=== PATIENT | female | born 1935 | race Caucasian/White ===

== ENCOUNTER 2018-04-02 09:47 | Outpatient (CLI) | payer MEDICARE, BC ==
[~2018-04-02] VITALS: Ht 167.6 cm; Wt 99.1 kg
--- NOTE | ~2018-04-02 | HEMODYNAMI ---
PATIENT:PHILL OH MEDICAL RECORD: [id number] : 35 LOCATION:[facility] ADMISSION DATE: 04/02/18 Generatedon:04/02/201816:14 Patient name: PHILL OH Patient #: [id number] SSN: D OB: 1935 Date of study: 04/02/2018 Page: Of Hemodynamic Procedure Report Patient Data Patient Demographics Procedure consent was obtained First Name: PHILL Gender: Female Last Name: ADRIANO : 1935 Middle Initial: B Age: 82 year(s) Patient #: [id number] Race: Unknown Additional ID: [id number] Contact details [address]: [address] [place] [address] State: [place] City: [place] Zip code: [address] Past Medical History Allergies: No known allergies Admission Admission Data Admission Date: 04/02/2018 Admission Time: 9:47 Procedure Procedure Types Cath Procedure Diagnostic Procedure LHC LH w/Coronaries Sedation Charges Moderate Sedation up to 15 minutes PCI Procedure Coronary Stent Coronary Stent Initial Procedure Description Procedure Date Procedure Date: 04/02/2018 Procedure Start Time: 15:58 Procedure End Time: 16:08 Procedure Staff Name Function Gurwinder Silva MD Performing Physician Rylie Daily RT Monitor Maria Luisaandie Purcell RT Scrub Silvana Antony RN Nurse Procedure Data Cath Procedure Fluoroscopy Diagnostic fluoroscopy Total fluoroscopy Time: 3.1 time: 3.1 min min Diagnostic fluoroscopy Total fluoroscopy dose: 596 dose: 596 mGy mGy Contrast Material Contrast Material Type Amount (ml) Isovue 300 62 Entry Location Entry Primary Successful Side Size Upsize Upsize Entry Closure Viramontes ccessful Closure Location (Fr) 1 (Fr) 2 (Fr) Remarks Device Remarks Radial Right 6 Fr Mechanical artery Short Compression Estimated blood loss: 5 ml Diagnostic catheters Device Type Used For End Catheter Placement DIAGNOSTIC [place] 110cm 5 Multi-vessel Fr catheter ([id number]) Angiography Procedure Complications No complications Procedure Medications Medication Administration Route Dosage Oxygen NC 2 l/min Lidocaine 2% added to field 20 Heparin Flush Bag added to field 2 bags (1000units/500ml NS) 0.9% NaCl I.V. 100 ml/hr Versed I.V. 1 mg Fentanyl I.V. 50 mcg Versed I.V. 1 mg Fentanyl I.V. 50 mcg Radial Cocktail I.A. 1 syringe (Verapomil 2mg/Nitro 400mcg/Heparin 1500units) Heparin Bolus I.V. 4000 units Integrilin (Bolus I.V. 9 ml 2mg/ml) Plavix P.O. 600 mg Hemodynamics Rest Heart Rate: 72 (bpm) Snapshots Pre Cath Intra NCS Post Cath Vital Signs Time Heart Resp SPO2 NIBP (mmHg) Rhythm Pain Sedation Rate (ipm) (%) Status Level (bpm) 15:36:04 71 21 95 Out of NSR 0 (11) 10(A) range , No pain 15:38:34 72 19 95 181/89(149) NSR 0 (11) 10(A) , No pain 15:42:56 75 13 95 137/77(114) NSR 0 (11) 10(A) , No pain 15:47:04 73 12 96 158/75(121) NSR 0 (11) 10(A) , No pain 15:51:20 72 13 98 145/74(117) NSR 0 (11) 10(A) , No pain 15:55:32 71 15 97 150/66(104) NSR 0 (11) 9(A) , No pain 15:59:46 80 17 96 100/66(95) NSR 0 (11) 9(A) , No pain 16:04:33 80 17 95 138/75(100) NSR 0 (11) 9(A) , No pain 16:09:38 82 16 96 169/86(131) NSR 0 (11) 10(A) , No pain Medications Time Medication Route Dose Verified Delivered Reason Note s Effectiveness by by 15:36:33 Oxygen NC 2 l/min Gurwinder Buffie used for Shira Antony plastic mould maker 15:36:40 Lidocaine 2% added 20ml Gurwinder Buffie for local to vial Shira Antony RN anesthetic field 15:36:46 Heparin Flush added 2 bags Gurwinder Buffie used for Bag to Shira Antony plastic mould maker (1000units/500ml field NS) 15:36:54 0.9% NaCl I.V. 100 Gurwinder Pina Per physician ml/hr Shira Antony RN 15:42:25 Versed I.V. 1 mg Gurwinder Pina for sedation Shira Antony RN 15:42:31 Fentanyl I.V. 50 mcg Gurwinder Pina for sedation Shira Antony RN 15:54:13 Versed I.V. 1 mg Gurwinder Pina for sedation Shira Antony RN 15:54:16 Fentanyl I.V. 50 mcg Gurwinder Pina for sedation Shira Antony RN 15:59:07 Radial Cocktail I.A. 1 Gurwinder Purdy for (Verapomil syringe Shira Silva MD vasodilation 2mg/Nitro 400mcg/Heparin 1500units) 16:02:13 Heparin Bolus I.V. 4000 Gurwinder Pina for veri fied units Shira Antony RN anticoagulation with dr silva 16:03:48 Integrilin I.V. 9 ml Gurwinder forbes Wast ed 1 (Bolus 2mg/ml) Shira Antony RN antiplatelet ml of therapy vial 16:10:16 Plavix P.O. 600 mg Gurwinder Pina for Shira Antony RN antiplatelet therapy Procedure Log Time Note 15:15:09 Silvana Antony RN sent for patient. Start room use. 15:17:26 Signed procedure consent form obtained from patient. 15:17:28 Time tracking: Regular hours (M-F 7:00 - 5:00) 15:17:31 Plan of Care:Hemodynamics will remain stable., Cardiac rhythm will remain stable., Comfort level will be maintained., Respiratory function will remain adequate., Patient/ family verbilizes understanding of procedure., Procedure tolerated without complication., Recovers from procedure without complications.. 15:17:40 H&P Date Dictated: 03/11/2018 Within 30 days and on chart., H&P Addendum completed by physician on day of procedure. (MUST COMPLETE FOR ALL OUTPATIENTS). 15:17:51 Patient allergic to No known allergies 15:26:45 Patient received from Pre/Post Procedure Room to CCL 2 Alert and oriented. Tansferred to table in Supine position. 15:26:47 Warm blankets applied, and onelia hugger turned on for patient comfort. 15:26:47 Correct patient and procedure confirmed by team. 15:26:48 ECG and BP/O2 sat monitors applied to patient. 15:34:59 Vital chart was started 15:36:33 Oxygen 2 l/min NC was administered by Silvana Antony RN; used for procedure; 15:36:40 Lidocaine 2% 20ml vial added to field was administered by Silvana Antony RN; for local anesthetic; 15:36:46 Heparin Flush Bag (1000units/500ml NS) 2 bags added to field was administered by Silvana Antony RN; used for procedure; 15:36:54 0.9% NaCl 100 ml/hr I.V. was administered by Silvana Antony RN; Per physician; 15:37:31 Baseline sample Acquired. 15:38:20 Rhythm: sinus rhythm 15:38:22 Full Disclosure recording started 15:38:24 Pre-procedure instructions explained to patient. 15:38:24 Pre-op teaching completed and patient verbalized understanding. 15:38:25 Family in waiting room. 15:38:27 Patient NPO since Midnight. 15:38:28 Is the patient allergic to Iodine/contrast media? No. 15:38:29 Was the patient premedicated? No 15:39:02 Is patient on blood thinner?No 15:39:05 Patient diabetic? Yes. 15:39:06 If diabetic: On Metformin? Yes 15:39:14 If on Metformin: Last Dose? 03/31/2018 15:39:18 Previous problem with sedation/anesthesia? No ? 15:39:37 Snore? Yes 15:39:38 Sleep apnea? No 15:39:39 Deviated septum? No 15:39:43 Opens mouth fully? Yes 15:39:44 Sticks out tongue? Yes 15:39:47 Airway obstruction? No ? 15:39:52 Dentures? Yes in tight 15:39:59 Pre procedure: right dorsailis pedis pulse 2+ Normal; easily identifiable; not easily obliterated 15:40:02 Pre procedure: left dorsailis pedis pulse 2+ Normal; easily identifiable; not easily obliterated 15:40:08 Patient pain scale 0/10 ?. 15:40:13 IV patent on arrival in left forearm with 0.9% NaCl at [facility]. 15:40:15 Lab results completed and on chart. 15:40:19 Right Radial & Right Groin area was prepped with chlora-prep and draped in sterile fashion 15:40:20 Alarms reviewed by R. N. 15:40:20 Sharps counted by scrub and verified by R.N. 15:40:22 Physician arrived 15:40:23 --------ALL STOP TIME OUT------ 15:40:23 Final Timeout: patient, procedure, and site verified with staff and physician. All members of the team are in agreement. 15:40:26 Right Radial & Right Groin site verified by team. 15:40:29 Physical assessment completed. ASA score P 2 - A patient with mild systemic disease as per Gurwinder Silva MD. 15:40:32 Sedation plan: IV Moderate Sedation Medication:Versed, Fentanyl 15:41:49 Use device set Radial Dx or PCI 15:41:50 ACIST Syringe (21923) opened to sterile field. 15:41:50 Medline Cath Pack ([id number]) opened to sterile field. 15:41:51 Bag Decanter (2002S) opened to sterile field. 15:41:51 DIAGNOSTIC WIRE .035 260cm J wire (316509) opened to sterile field. 15:41:51 ACIST Hand Control (48308) opened to sterile field. 15:41:52 ACIST Manifold (31675) opened to sterile field. 15:41:52 Tegaderm 4 x 4 (1626W) opened to sterile field. 15:41:53 MBrace Wrist Support ([id number]) opened to sterile field. 15:41:54 SHEATH 6Fr Prelude Radial ([id number]) opened to sterile field. 15:42:25 Versed 1 mg I.V. was administered by Silvana Antony RN; for sedation; 15:42:31 Fentanyl 50 mcg I.V. was administered by Silvana Antony RN; for sedation; 15:47:05 Zero performed for pressure channel P1 15:54:13 Versed 1 mg I.V. was administered by Silvana Antony RN; for sedation; 15:54:16 Fentanyl 50 mcg I.V. was administered by Silvana Antony RN; for sedation; 15:56:12 Procedure started. 15:58:30 Local anesthetic to right radial artery with Lidocaine 2% by Gurwinder Silva MD.INITIAL ACCESS ONLY 15:58:38 A 6 Fr Short sheath was inserted into the Right Radial artery 15:58:55 A DIAGNOSTIC [place] 110cm 5 Fr catheter (395508) was advanced over the wire and used for Multi-vessel Angiography. 15:59:07 Radial Cocktail (Verapomil 2mg/Nitro 400mcg/Heparin 1500units) 1 syringe I.A. was administered by Gurwinder Silva MD; for vasodilation; 15:59:26 LV hemodynamics recorded. 15:59:28 LV gram done using VALLES 15:59:31 Injector settings: Ml/sec: 5, Volume: 15, 15:59:37 EF : 60 % 16:00:20 LCA angiography performed. 16:00:23 Injector settings: Ml/sec: 3, Volume: 6, 16:00:35 RCA angiography performed. 16:00:38 Injector settings: Ml/sec: 3, Volume: 6, 16:00:41 Catheter removed. 16:00:42 Proceeding to intervention. 16:00:59 CHOICE PT Extra Support 182cm wire ([id number]) opened to sterile field. 16:01:00 INFLATOR Merit BasixCompak (ZW4074) opened to sterile field. 16:01:01 GUIDE 6FR XBLAD 3.5 catheter ([id number]) opened to sterile field. 16:01:54 6 Fr xblad 3.5 guide catheter was inserted over the wire 16:02:13 Heparin Bolus 4000 units I.V. was administered by Silvana Antony RN; for anticoagulation; verified with dr silva 16:02:41 choice pt wire advanced. 16:02:47 Wire advanced across lesion. 16:03:48 Integrilin (Bolus 2mg/ml) 9 ml I.V. was administered by Silvana Antony RN; for antiplatelet therapy; Wasted 1 ml of vial 16:04:03 Place stent Inflation Number: 1 A RICH RX 2.5 x 38 stent ([id number]) was prepped and advanced across the Mid LAD. The stent was deployed at 17 JESSICA for 0:10 (min:sec). 16:04:36 Stent catheter was removed intact over wire. 16:05:41 Place stent Inflation Number: 1 A RICH RX 3.0 x 15 stent ([id number]) was prepped and advanced across the Prox LAD. The stent was deployed at 15 JESSICA for 0:10 (min:sec). 16:06:44 Stent catheter was removed intact over wire. 16:06:44 Wire removed. 16:06:44 Guide catheter removed. 16:07:01 TR BAND Standard ([id number]) opened to sterile field. 16:07:12 Sheath removed intact; hemostasis achieved with Mechanical Compression to the Right Radial artery. 16:07:14 Procedure ended.(Physican Out) 16:07:18 Fluoroscopy time 03.10 minutes. 16:07:22 Fluoroscopy dose: 596 mGy 16:07:22 Flurop Dose total: 596 16:07:27 Contrast amount:Isovue 300 62ml. 16:07:29 Sharps counted by scrub and verified by R.N. 16:07:48 TR band inflated with 11cc of air. 16:07:50 Insertion/operative site no bleeding no hematoma. 16:07:55 Post right radial artery:stable 16:07:58 Post procedure rhythm: unchanged. 16:08:01 Estimated blood loss: 5 ml 16:08:03 Post procedure instruction explained to patient.Patient verbalizes understanding. 16:08:04 Patient needs reinforcement of post procedure teaching. 16:08:32 Procedure type changed to Cath procedure, Diagnostic procedure, LHC, LHC w/Coronaries, Sedation Charges, Moderate Sedation up to 15 minutes, PCI procedure, Coronary Stent, Coronary Stent Initial 16:08:33 Procedure and supply charges have been captured, reviewed, submitted and are correct. 16:08:37 Procedure Complication : No complications 16:08:39 Vital chart was stopped 16:08:39 See physician's report for complete and final results. 16:08:43 Report given to Pre/Post Procedure Room. 16:08:45 Patient transfered to Pre/Post Procedure Room with Stretcher. 16:08:48 Procedure ended. 16:08:48 Full Disclosure recording stopped 16:08:53 ACC-PCI Only Patient was given prescriptions, or instructed by Gurwinder Silva MD to start/continue the following medications upon discharge: Plavix 16:08:54 End room use (Document Last) 16:10:16 Plavix 600 mg P.O. was administered by Silvana Antony RN; for antiplatelet therapy; Intervention Summary Intervention Notes Time ActionType Lesion and Equipment Used Action# Pressure Duration Attributes 16:04:03 Place stent Mid LAD RICH RX 2.5 x 1 17 00:10 38 stent ([id number]) 16:05:41 Place stent Prox LAD RICH RX 3.0 x 1 15 00:10 15 stent ([id number]) Device Usage Item Name Manufacture Quantity Catalog Number Hospital Part Current Minimal Lot# / Charge Number Stock Stock Serial# Code ACIST Syringe Acist 1 86301 891779 488111 452137 20 (63123) Medical Systems Inc Medline Cath Cardinal 1 [id number] 429355 16989 030784 5 Pack Health ([id number]) Bag Decanter Microtek 1 2001S 526025 74572 379560 5 (2001S) Medical Inc. DIAGNOSTIC WIRE [place] 1 716662 257845 242650 078004 30 .035 260cm J wire (754559) ACIST Hand Acist 1 25102 314940 301105 901153 5 Control (48664) Medical Systems Inc ACIST Manifold Acist 1 87428 285291 155976 201012 5 (33908) Medical Systems Inc Tegaderm 4 x 4 3M 1 1626W 659413 109434 985186 5 (1626W) MBrace Wrist Advanced 1 140-0250-00 431838 79115 075147 5 Support Vascular (094912752) Dynamics SHEATH 6Fr Merit 1 [id number] 809767 824226 228755 5 Prelude Radial Medical ([id number]) DIAGNOSTIC Terumo 1 79-1777 450559 457366 798224 5 [place] 110cm 5 Fr catheter (340079) CHOICE PT Extra [place] 1 [id number] 925398 551921 835163 5 Support 182cm Scientific wire (0834569L5) INFLATOR Merit Merit 1 DG3832 204984 912250 396663 15 BasixHealth Discovery Medical (SV6281) GUIDE 6FR XBLAD Cardinal 1 [id number] 849592 941809 760564 10 3.5 catheter Health (22736017) RICH RX 2.5 x Medtronic 1 [id number] 245664 3292776 101945 5 [id number] 38 stent ([id number]) RCIH RX 3.0 x Medtronic 1 [id number] 789757 6159829 307205 5 [id number] 15 stent ([id number]) TR BAND Terumo 1 [id number] 479373 063482 709909 40 Standard ([id number]) Signature Audit [place] Stage Time Signature Unsigned Intra-Procedure 04/02/2018 Rylie Daily 4:14:03 PM RT(R) Signatures Monitor : Rylie Daily RT Signature : Date : Time : [facility] [address] [place] [address]
--- NOTE | ~2018-04-02 | OP ---
PATIENT NAME: PHILL OH MEDICAL RECORD: [id number] :35 LOCATION:D.[facility] ADMISSION DATE: SURGEON: JILLIAN BYRNES MD DATE OF OPERATION: 04/02/2018 DATE OF SERVICE: 04/02/2018 PROCEDURES: 1. PTCA stent of LAD. 2. Left heart catheterization. 3. Selective coronary angiography. 4. Left ventriculogram. INDICATION: Angina and coronary artery disease. PROCEDURE IN DETAIL: After informed consent was obtained and after a detailed description of the risks, benefits as well as alternative therapies the patient elected to proceed with angiogram and angioplasty. The right radial area was prepped and draped in normal sterile fashion. Right radial artery was cannulated via modified Seldinger technique with placement of 6-Rwandan sheath. All catheters exchanged through this sheath. FINDINGS: The left ventriculogram was performed in standard 30-degree VALLES view, reveals good cardiac wall motion throughout all segments. Overall ejection fraction is estimated at 60%. SELECTIVE CORONARY ANGIOGRAPHY: 1. Left main is with no significant angiographic disease. 2. Left anterior descending has a long area of 70 to 80% stenosis in the proximal vessel. 3. Left circumflex has mild irregularities, but no flow-limiting stenosis. 4. Right coronary has mild irregularities, but no flow-limiting stenosis. PTCA STENT OF THE LAD: The stent used was 2.5 x 38 and 3.0 x 15, both the [place] stents. Result was 0% residual stenosis. OVERALL IMPRESSION: Successful percutaneous transluminal coronary angioplasty stent of the left anterior descending going from 70 to 80% initial stenosis to 0% residual. TRANSINT:[id number] Voice Confirmation ID: [id number] DOCUMENT ID: [id number] JILLIAN BYRNES MD at 1325 CC: [id number] DICTATION DATE: 04/02/18 1611 ACCOUNT CONTACT ASSOCIATE: 04/02/18 1632 DEP CLI 04/02/18 [place] [id number] [place] [id number]
[2018-04-02] MEDS ORDERED: TRAZODONE HCL50 MG PO (10:37)
[2018-04-02] MEDS ORDERED: SYNTHROID25 MCG PO (10:38)
[2018-04-02] MEDS ORDERED: VERELAN180 MG PO (10:39)
[2018-04-02] MEDS ORDERED: GLIPIZIDE10 MG PO (10:39)
[2018-04-02] MEDS ORDERED: GLUCOPHAGE500 MG PO (10:40)
[2018-04-02] MEDS ORDERED: MULTIPLE VITAMI1 TA1 PO (10:42)
[2018-04-02] MEDS ORDERED: PRAVACHOL20 MG PO (10:42)
[2018-04-02] MEDS ORDERED: GABAPENTIN100 MG PO ×2 (10:44)
[2018-04-02 10:56] VITALS: BP 179/64; Ht 167.6 cm; Wt 99.1 kg
[2018-04-02 11:51] LABS: CALC OSMOLALITY 283 mosm/kg (275-300); CALCIUM 9.1 mg/dL (8.5-10.1); CARBON DIOXIDE 30.2 mmol/L (21.0-32.0); CHLORIDE - SERUM 104 mmol/L (98-107); CREATININE - SERUM 0.6 mg/dL (0.6-1.3); GLUCOSE 181 mg/dL (74-106); POTASSIUM - SERUM 4.1 mmol/L (3.5-5.1); SODIUM 140 mmol/L (136-145); UREA NITROGEN 13 mg/dL (7-18); eGFR NON AFRICAN AMERICAN > 90 mL/min (90-120)
[2018-04-02 12:48] LABS: HEMATOCRIT 40.6 % (36.0-48.0); HEMOGLOBIN 13.5 g/dL (12-16); MCH 31.6 pg (26.0-34.0); MCHC 33.3 g/dL (31.0-37.0); MCV 95.1 fL (80.0-100.0); MEAN PLATELET VOLUME 8.6 fL (7.4-10.4); PLATELET COUNT 176 10x3/uL (130-400); RBC 4.27 10x6/uL (4.00-5.40); RDW 13.6 % (11.5-14.5); WBC 29.6 10x3/uL (4.8-10.8)
[2018-04-02 13:08] LABS: ANISOCYTOSIS OCC; EOSINOPHILS 1 % (0-7); LYMPHOCYTES 56 % (15-50); MONOCYTES 13 % (2-11); NEUTROPHILS 9 % (40-80); PLATELET ESTIMATE NORMAL
[2018-04-02] MEDS ORDERED: BAYER CHEWABLE81 MG PO (16:35)
[2018-04-02] MEDS ORDERED: PLAVIX75 MG PO (16:35)
== END 2018-04-02 20:00 | disposition home or self-care (01) ==
LOC: D.CATH 09:47
PROVIDERS: Internal Medicine Interventional Cardiology
DX: I25.119 Atherosclerotic heart disease of native coronary artery with unspecified angina pectoris (principal)
CPT/HCPCS: 93458; C9600

== ENCOUNTER → 2019-11-14 10:30 | Outpatient (CLI) | payer MEDICARE, BC ==
[2019-10-22 14:20] VITALS: BMI 30.4
--- NOTE | ~2019-11-14 | EC ---
PATIENT:PHILL OH DATE OF SERVICE: 11/14/19 SEX: F MEDICAL RECORD: [id number] DATE OF : 35 LOCATION:D[facility] AGE OF PATIENT: 84 ADMISSION DATE: 11/14/19 REFERRING PHYSICIAN: INTERPRETING PHYSICIAN: JILLIAN SILVA MD ECHOCARDIOGRAM REPORT ECHO CHARGES 4 ECHO COMPLETE Date: 11/14/19 CLINICAL DIAGNOSIS: HEAD/PAC'S H/O A-FIB/HTN/CAD ECHOCARDIOGRAPHIC MEASUREMENTS (adult normal given) AC root (d.<3.7cm) 2.9 cm LV Septum d (<1.2 cm> 1.7 cm Valve Excursion 1.8 cm LV Septum (systole) 2.1 cm Left Atria (s.<4.0cm> 4.7 cm LVPW d(<1.2cm) 1.4 cm RV (d.<2.3cm) 2.4 cm LVPW (sytole) 2.1 cm LV diastole(<5.6CM) 4.7 cm MV E-F(>70mm/sec) cm LV systole 2.6 cm LVOT Diameter 1.7 cm MV exc.(>10mm) cm Est.ejection fraction (50-75%) % DOPPLER: LVIT cm/sec A 111 cm/sec E 72.0 cm/sec LA cm/sec RVSP 18.0 mmHg LVOT 102 cm/sec AOP1/2T m/s Asc. Ao 139 cm/sec RVOT 86.0 cm/sec RA cm/sec PA 114 cm/sec AV Gradient Peak 7.7 mmHg AV Mean 3.7 mmHg AV Area 1.9 cm MV Gradient Peak 5.5 mmHg MV Mean 1.8 mmHg MV Area cm COMMENTS: OP - HC Installation Superintendent: 1 KRISTOPHER THOMAS Tile Molder: 1 Dr. Silva TAPE# PACS Pericardial Effusion N DATE OF SERVICE: FINDINGS: 1. Left ventricular chamber size is within normal limits. Left ventricular systolic function is normal at 55%. 2. Left atrium is enlarged at 4.7 cm. Right atrium and right ventricle chamber sizes are within normal limits. 3. Valvular structures have normal structure and motion. 4. Doppler interrogation reveals no significant valvular insufficiency or stenosis. Pulmonary systolic pressure estimated at 18 mmHg. ECHOCARDIOGRAM REPORT [id number] PHILL OH 5. No evidence of pericardial effusion or left ventricular thrombus. TRANSINT:[id number] Voice Confirmation ID: [id number] DOCUMENT ID: [id number] JILLIAN SILVA MD CC: [id number] DICTATION DATE: 11/14/19 1645 CAR EXAMINER: 11/15/19 0040 DEP CLI 11/14/19 [facility] [address] [place] [id number]
--- NOTE | ~2019-11-14 | ST ---
PATIENT:PHILL OH MEDICAL RECORD: [id number] SEX: F LOCATION:[facility] ORDER #: ADMISSION DATE: 11/14/19 AGE OF PATIENT: 84 REFERRING PHYSICIAN: INTERPRETING PHYSICIAN: JILLIAN BYNRES MD DATE OF SERVICE: 11/14/2019 PROCEDURE: Nuclear stress test. INDICATION: Angina and coronary artery disease, hypertension, shortness of breath. She was exercised on standard Lexiscan protocol with 33 mCi of sestamibi injected at peak stress, 11 mCi used previously for rest images. FINDINGS: Gated SPECT reveals preserved ejection fraction at 59% with good wall motioning and thickening and brightening throughout all segments. SPECT imaging: Cardiolite was used as myocardial perfusion agent. There is reversibility laterally as well as anteriorly at the basal, mid and apical anterior segments. The degree of reversibility is mild. The amount of myocardium involved is moderate. Laterally, it is apical mid and basal lateral segments. Degree of reversibility is moderate. The amount of myocardium involved is moderate. OVERALL IMPRESSION: Abnormal nuclear stress test, reversible ischemia anteriorly and laterally suggestive of hemodynamically significant coronary artery disease. TRANSINT:[id number] Voice Confirmation ID: [id number] DOCUMENT ID: [id number] JILLIAN BYRNES MD CC: CHELA KAUFMAN MD [id number] DICTATION DATE: 11/14/19 1559 STOCK TRANSFER CLERK: 11/15/19 0820 DEP CLI 11/14/19 [place] [id number] [place] [address]
[~2019-11-14 10:30] MED LIST: BAYER CHEWABLE81 MG PO; GABAPENTIN100 MG PO; GLIPIZIDE10 MG PO; GLUCOPHAGE500 MG PO; LEVOFLOXACIN500 MG PO; MULTIPLE VITAMI1 TA1 PO; PLAVIX75 MG PO; PRAVACHOL20 MG PO; SYNTHROID25 MCG PO; TRAZODONE HCL50 MG PO; VERELAN180 MG PO
== END | disposition home or self-care (01) ==
LOC: D.HCCARDIO 10:30
PROVIDERS: ATTEND Internal Medicine Interventional Cardiology
DX: I25.10 Atherosclerotic heart disease of native coronary artery without angina pectoris (principal)

== ENCOUNTER 2019-11-22 07:40 | Outpatient (CLI) | payer MEDICARE, BC ==
[~2019-11-22] VITALS: Ht 167.6 cm; Wt 85.0 kg
--- NOTE | ~2019-11-22 | HEMODYNAMI ---
PATIENT:PHILL OH MEDICAL RECORD: [id number] : 35 LOCATION:[facility] ADMISSION DATE: 11/22/19 Generatedon:11/22/20199:51 Patient name: PHILL OH Patient #: [id number] SSN: [id number] : 1935 Date of study: 11/22/2019 Page: Of Hemodynamic Procedure Report Patient Data Patient Demographics Procedure consent was obtained First Name: PHILL Gender: Female Last Name: ADRIANO : 1935 Middle Initial: B Age: 84 year(s) Patient #: [id number] Race: SSN: [id number] Additional ID: [id number] Contact details Address: [address] [place] [address] [place] State: [place] City: [place] Zip code: [address] Past Medical History Allergies: No known allergies Admission Admission Data Admission Date: 11/22/2019 Admission Time: 7:40 Arrival Date: 11/22/2019 Arrival Time: 9:00 Admit Source: Other Insurance Payor: Medicare [facility] #: [id number] Height (in.): 66 BSA: 2.03 (m2) Height (cm.): 167.64 BMI: 33.57 (kg/m2) Weight (lbs.): 208 Weight (kg.): 94.35 Lab Results Lab Result Date: 11/22/2019 Lab Result Time: 0:00 Biochemistry Name Units Result Min Max BUN mg/dl 10 --(-*--)-- 7 18 Creatinine mg/dl 0.6 --(*---)-- 0.6 1.3 eGFR ml/min 90 --(*---)-- 90 120 NONAFRICAN CBC Name Units Result Min Max Hemoglobin g/dl 12.5 *-(----)-- 13.5 17.5 Procedure Procedure Types Cath Procedure Diagnostic Procedure [facility] w/Coronaries Sedation Charges Moderate Sedation up to 15 minutes PCI Procedure Coronary Stent Coronary Stent Initial Hemochron ACT Test Procedure Description Procedure Date Procedure Date: 11/22/2019 Procedure Start Time: 9:34 Procedure End Time: 9:49 Procedure Staff Name Function Gurwinder Silva MD Performing Physician Rylie Daily RT Monitor Kelli Kim RT Scrub Radha Yates RN Nurse Procedure Data Cath Procedure Fluoroscopy Diagnostic fluoroscopy Total fluoroscopy Time: 3.6 time: 3.6 min min Diagnostic fluoroscopy Total fluoroscopy dose: 694 dose: 694 mGy mGy Contrast Material Contrast Material Type Amount (ml) Isovue 300 84 Entry Location Entry Primary Successful Side Size Upsize Upsize Entry Closure Viramontes ccessful Closure Location (Fr) 1 (Fr) 2 (Fr) Remarks Device Remarks Radial Right 6 Fr Mechanical artery Short Compression Estimated blood loss: 5 ml Diagnostic catheters Device Type Used For End Catheter Placement DIAGNOSTIC [place] 110cm 5 Multi-vessel Fr catheter ([id number]) Angiography Procedure Complications No complications Procedure Medications Medication Administration Route Dosage 0.9% NaCl I.V. 100 ml/hr Oxygen etCO2 Nasal cannula 2 l/min Lidocaine 2% added to field 20 Heparin Flush Bag added to field 2 bags (1000units/500ml NS) Radial Cocktail added to field 1 syringe (Verapamil 2mg/Nitro 400mcg/Heparin 1500units) Versed I.V. 2 mg Fentanyl I.V. 50 mcg Fentanyl I.V. 50 mcg Heparin Bolus I.V. 4000 units Integrilin (Bolus I.V. 7.9 ml 2mg/ml) Integrilin (Bolus wasted 2.1 ml 2mg/ml) Plavix P.O. 600 mg Hemodynamics Rest BSA: 2.03 (m2) HGB: 12.5 (g/dl) O2 Consumption: Estimated: 172.23 (ml/min) O2 Co nsumption indexed: Estimated:84.84 (ml/min/m) Heart Rate: 59 (bpm) Pressure Samples Time Site Value (mmHg) Purpose Heart Use Rate(bpm) 9:37 LV 46/39,39 Snapshot 60 Snapshots Pre Cath Intra NCS Post Cath Vital Signs Time Heart Resp SPO2 etCO2 NIBP (mmHg) Rhythm Pain Sedation Rate (ipm) (%) (mmHg) Status Level (bpm) 9:14:42 78 11 97 0 Measuring NSR 0 (11) 10(A) , No pain 9:15:19 72 11 98 0 204/87(158) NSR 0 (11) 10(A) , No pain 9:20:04 61 15 100 38.6 214/79(157) NSR 0 (11) 10(A) , No pain 9:25:03 75 23 100 33.3 Measuring NSR 0 (11) 10(A) , No pain 9:26:02 67 20 100 37.8 195/77(144) NSR 0 (11) 10(A) , No pain 9:30:35 61 21 100 17.4 188/78(140) NSR 0 (11) 10(A) , No pain 9:35:05 63 12 100 15.9 170/79(127) NSR 0 (11) 10(A) , No pain 9:39:35 60 24 98 31.8 136/44(96) NSR 0 (11) 10(A) , No pain 9:43:57 65 23 100 40.8 148/67(106) NSR 0 (11) 9(A) , No pain 9:48:24 63 23 100 15.9 159/67(126) NSR 0 (11) 10(A) , No pain Medications Time Medication Route Dose Verified Delivered Reason Note s Effectiveness by by 9:13:00 0.9% NaCl I.V. 100 Gurwinder Radha used for ml/hr Shira Yates hog scraper 9:13:08 Oxygen etCO2 2 l/min Gurwinder Radha used for Nasal Shira Yates procedure cannula RN 9:13:12 Lidocaine 2% added 20ml Gurwinder Purdy for local to vial Shira Silva MD anesthetic field 9:13:17 Heparin Flush added 2 bags Gurwinder Purdy used for Bag to Shira Silva MD procedure (1000units/500ml field NS) 9:13:32 Radial Cocktail added 1 Gurwinderrenetta Purdy used for (Verapamil to syringe Shira Silva MD procedure 2mg/Nitro field 400mcg/Heparin 1500units) 9:34:34 Versed I.V. 2 mg Gurwinder Radha for sedation Shira Yates RN 9:34:43 Fentanyl I.V. 50 mcg Gurwinder Radha for sedation Shira Yates RN 9:39:57 Heparin Bolus I.V. 4000 Gurwinder Radha for veri fied units Shira Yates anticoagulation with Dr. HUBERT Silva 9:40:49 Fentanyl I.V. 50 mcg Gurwinder Garcia for sedation Shira Yates RN 9:43:10 Integrilin I.V. 7.9 ml Gurwinder Garcia for (Bolus 2mg/ml) Shira Yates antiplatelet RN therapy 9:43:22 Integrilin wasted 2.1 ml Gurwinder Garcia for (Bolus 2mg/ml) Shira Yates antiplatelet RN therapy 9:43:28 Plavix P.O. 600 mg Gurwinder Garcia for Shira Yates antiplatelet RN therapy Procedure Log Time Note 8:55:03 Informed consent obtained and on chart 8:55:37 Stress Test: yes; abnormal anterior 8:57:04 Arrival Date: 11/22/2019 9:00:00 AM 8:57:28 Admit Source: Other 8:57:35 Insurance Payor : Medicare 8:57:44 Patient Height : 66 inches 8:57:47 Patient Weight : 208 lbs 8:59:38 ACC Patient presents with Stable Angina CCS Anginal Class 2--Slight limitation of ordinary activity. 9:00:53 ACCPatient has been prescribed/administered the following anti-anginal medication within the last 2 weeks: None 9:00:58 Procedure Status Elective Heart Cath (OP). 9:01:05 Diagnostic Cath Status : Elective 9:01:46 Radha Yates RN sent for patient. Start room use. 9:01:47 Time tracking: Regular hours (M-F 7:00 - 5:00) 9:01:51 Plan of Care:Hemodynamics will remain stable., Cardiac rhythm will remain stable., Comfort level will be maintained., Respiratory function will remain adequate., Patient/ family verbilizes understanding of procedure., Procedure tolerated without complication., Recovers from procedure without complications.. 9:06:22 Patient received from Pre/Post Procedure Room to CCL 2 Alert and oriented. Tansferred to table in Supine position. 9:06:23 Warm blankets applied, and onelia hugger turned on for patient comfort. 9:06:23 Correct patient and procedure confirmed by team. 9:06:24 ECG and BP/O2 sat monitors applied to patient. 9:12:52 Vital chart was started 9:13:00 0.9% NaCl 100 ml/hr I.V. was administered by Radha Yates RN; used for procedure; Verbal order read back and verified. 9:13:08 Oxygen 2 l/min etCO2 Nasal cannula was administered by Radha Yates RN; used for procedure; Verbal order read back and verified. 9:13:12 Lidocaine 2% 20ml vial added to field was administered by Gurwinder Silva MD; for local anesthetic; Verbal order read back and verified. 9:13:17 Heparin Flush Bag (1000units/500ml NS) 2 bags added to field was administered by Gurwinder Silva MD; used for procedure; Verbal order read back and verified. 9:13:32 Radial Cocktail (Verapamil 2mg/Nitro 400mcg/Heparin 1500units) 1 syringe added to field was administered by Gurwinder Silva MD; used for procedure; Verbal order read back and verified. 9:19:53 Baseline sample Acquired. 9:19:57 Rhythm: sinus rhythm 9:19:59 Full Disclosure recording started 9:20:04 H&P Date Dictated: 11/22/2019 Within 30 days and on chart., H&P Addendum completed by physician on day of procedure. (MUST COMPLETE FOR ALL OUTPATIENTS). 9:20:05 Pre-procedure instructions explained to patient. 9:20:06 Pre-op teaching completed and patient verbalized understanding. 9:20:07 Family in patients room. 9:20:09 Patient NPO since Midnight. 9:20:11 Is the patient allergic to Iodine/contrast media? No. 9:20:13 Was the patient premedicated? Yes 9:20:14 Is patient on blood thinner?No 9:20:15 Patient diabetic? Yes. 9:22:17 If diabetic: On Metformin? Yes 9:22:19 Previous problem with sedation/anesthesia? No ? 9:22:21 Snore? Yes 9:22:23 Sleep apnea? No 9:22:24 Deviated septum? No 9:22:25 Opens mouth fully? Yes 9:22:26 Sticks out tongue? Yes 9:22:28 Airway obstruction? No ? 9:22:34 Dentures? No ? 9:22:50 Pre procedure: right dorsailis pedis pulse 1+ Palpable, but thready & weak; easily obliterated 9:22:57 Pre procedure: left dorsailis pedis pulse 1+ Palpable, but thready & weak; easily obliterated 9:23:01 Patient pain scale 0/10 ?. 9:23:45 If on Metformin: Last Dose? 11/19/2019 9:24:11 IV patent on arrival in left forearm with 0.9% NaCl at [facility]. 9::55 Lab Result : BUN 10 mg/dl 9::55 Lab Result : Creatinine 0.6 mg/dl 9::55 Lab Result : eGFR NONAFRICAN 90 ml/min 9::55 Lab Result : Hemoglobin 12.5 g/dl 9:27:00 Lab results completed and on chart. 9:28:36 Risk of Mortality: 0.4 9:28:40 Risk of blood transfusion: 0.4 9::44 Risk of REJI: 1.5 9:28:48 Right Radial & Right Groin area was prepped with chlora-prep and draped in sterile fashion 9:28:49 Alarms reviewed by R. N. 9:28:49 Sharps counted by scrub and verified by R.N. 9:28:52 Physician paged 9:29:25 1) 90+ Normal kidney functon but urine findings or structural abnormalities or genetic trait point to kidney disease. 9:29:29 Maximum allowable contrast dose (3.7 X eGFR X 0.75)249 ml. 9:33:12 Physician arrived 9:33:13 --------ALL STOP TIME OUT------ 9:33:13 Final Timeout: patient, procedure, and site verified with staff and physician. All members of the team are in agreement. 9:33:17 Right Radial & Right Groin site verified by team. 9:33:20 Fire Safety Assessment: A--An alcohol-based skin anteseptic being used preoperatively., C--Open oxygen or nitrous oxide is being used., D--An ESU, laser, or fiber-optic light is being used. 9:33:23 Physical assessment completed. ASA score P 2 - A patient with mild systemic disease as per Gurwinder Silva MD. 9:33:26 Sedation plan: IV Moderate Sedation Medication:Versed, Fentanyl 9:33:30 Use device set Radial Dx or PCI 9:33:31 ACIST Syringe (02970) opened to sterile field. 9:33:32 Medline Cath Pack ([id number]) opened to sterile field. 9:33:32 Bag Decanter (2001S) opened to sterile field. 9:33:32 ACIST Hand Control (82258) opened to sterile field. 9:33:33 ACIST Manifold (94623) opened to sterile field. 9:33:34 Tegaderm 4 x 4 (1626W) opened to sterile field. 9:33:35 MBrace Wrist Support ([id number]) opened to sterile field. 9:33:36 SHEATH 6FR RAIN (5608562) opened to sterile field. 9:33:37 EMERALD Guide Wire (559-825) opened to sterile field. 9:34:34 Versed 2 mg I.V. was administered by Radha Yates RN; for sedation; Verbal order read back and verified. 9:34:43 Fentanyl 50 mcg I.V. was administered by Radha Yates RN; for sedation; Verbal order read back and verified. 9:34:55 Procedure started. 9:34:59 Local anesthetic to right radial artery with Lidocaine 2% by Gurwinder Silva MD.INITIAL ACCESS ONLY 9:35:07 A 6 Fr Short sheath was inserted into the Right Radial artery 9:35:48 A DIAGNOSTIC [place] 110cm 5 Fr catheter (602765) was advanced over the wire and used for Multi-vessel Angiography. 9:35:50 Zero performed for pressure channel P1 9:35:55 Zero performed for pressure channel P1 9:36:32 Tegaderm 4 x 4 (1626W) opened to sterile field. 9:37:09 LV hemodynamics recorded. 9:37:11 LV gram done using VALLES 9:37:13 Injector settings: Ml/sec: 5, Volume: 15, 9:37:20 EF : 60 % 9:37:36 LCA angiography performed. 9:37:39 Injector settings: Ml/sec: 3, Volume: 6, 9:38:10 INFLATOR Merit BasixCompak (OZ2639) opened to sterile field. 9:38:11 CHOICE PT Extra Support 182cm wire ([id number]) opened to sterile field. 9:38:31 GUIDE 6FR XBLAD 3.5 catheter ([id number]) opened to sterile field. 9:39:00 Catheter removed. 9:39:22 GUIDE 6FR AR 2.0 catheter ([id number]) opened to sterile field. 9:39:57 Heparin Bolus 4000 units I.V. was administered by Radha Yates RN; for anticoagulation; verified with Dr. Silva Verbal order read back and verified. 9:40:21 6 Fr ar 2 guide catheter was inserted over the wire 9:40:26 RCA angiography performed. 9:40:29 Injector settings: Ml/sec: 3, Volume: 6, 9:40:49 Fentanyl 50 mcg I.V. was administered by Radha Yates RN; for sedation; Verbal order read back and verified. 9:40:52 Catheter removed. 9:40:59 Proceeding to intervention. 9:41:04 Pre PCI Site: [place] mLAD has 90% stenosis. 9:41:04 ACC Pre-intervention JUAN ALBERTO Flow is 3. 9:41:19 6 Fr xblad 3.5 guide catheter was inserted over the wire 9:41:25 choice pt wire advanced. 9:42:10 Wire advanced across lesion. 9:43:10 Integrilin (Bolus 2mg/ml) 7.9 ml I.V. was administered by Radha Yates RN; for antiplatelet therapy; Verbal order read back and verified. 9:43:22 Integrilin (Bolus 2mg/ml) 2.1 ml wasted was administered by Radha Yates RN; for antiplatelet therapy; Verbal order read back and verified. 9:43:28 Plavix 600 mg P.O. was administered by Radha Yates RN; for antiplatelet therapy; Verbal order read back and verified. 9:44:06 Place stent Inflation Number: 1 A RICH RX 2.5 x 12 stent ([id number]) was prepped and advanced across the Mid LAD 90. The stent was deployed at 21 JESSICA for 0:10 (min:sec) 0. 9:44:26 Inflation number: 1 The stent balloon was then re-inflated across the Prox LAD to 21 JESSICA for 0:10 (min:sec) . 9:44:33 Inflation number: 2 The stent balloon was then re-inflated across the Prox LAD to 21 JESSICA for 0:10 (min:sec) . 9:45:17 Stent catheter was removed intact over wire. 9:45:18 Wire removed. 9:45:18 Guide catheter removed. 9:45:25 ZEPHYR REGULAR TR BAND (793181) opened to sterile field. 9:45:32 Sheath removed intact; hemostasis achieved with Mechanical Compression to the Right Radial artery. 9:45:33 Procedure ended.(Physican Out) 9:46:45 Post PCI Site: [place] mLAD has 0% stenosis. 9:46:49 ACC Post-intervention JUAN ALBERTO Flow is 3. 9:47:21 Fluoroscopy time 03.60 minutes. 9:47:28 Fluoroscopy dose: 694 mGy 9:47:28 Flurop Dose total: 694 9:47:33 Dose Area Product 37871 mGy/cm. 9:47:36 ACT drawn and resulted at 229 seconds. (normal therapeutic range 180-240 seconds). 9:47:37 Contrast amount:Isovue 300 84ml. 9:47:39 Maximum allowable dose exceeded? No. 9:47:40 Sharps counted by scrub and verified by R.N. 9:47:42 [place] band inflated with 10cc of air. 9:47:43 Insertion/operative site no bleeding no hematoma. 9:47:48 Post right radial artery:stable 9:47:49 Post Procedure Pulses reassessed and unchanged 9:47:51 Post procedure rhythm: unchanged. 9:48:00 Estimated blood loss: 5 ml 9:48:02 Post procedure instruction explained to patient.Patient verbalizes understanding. 9:48:03 Patient needs reinforcement of post procedure teaching. 9:48:35 Procedure type changed to Cath procedure, Diagnostic procedure, C, [facility] w/Coronaries, Sedation Charges, Moderate Sedation up to 15 minutes, PCI procedure, Coronary Stent, Coronary Stent Initial, Hemochron ACT Test 9:48:36 Procedure and supply charges have been captured, reviewed, submitted and are correct. 9:48:40 Procedure Complication : No complications 9:48:43 Vital chart was stopped 9:48:45 [facility] Findings: MVD- PCI performed (see procedure note) 9:48:47 Operative report dictated upon procedure completion. 9:48:48 See physician's report for complete and final results. 9:48:53 Report given to Pre/Post Procedure Room. 9:49:01 Patient transfered to Pre/Post Procedure Room with Stretcher. 9:49:04 Procedure ended. 9:49:04 Full Disclosure recording stopped 9:49:13 ACC-PCI Only Patient was given prescriptions, or instructed by Gurwinder Silva MD to start/continue the following medications upon discharge: Plavix 9:49:32 End room use (Document Last) Intervention Summary Intervention Notes Time ActionType Lesion and Equipment Used Action# Pressure Duration Attributes 9:44:06 Place stent Mid LAD RICH RX 2.5 x 1 21 00:10 12 stent ([id number]) 9:44:26 Reinflate Prox LAD RICH RX 2.5 x 1 21 00:10 stent 12 stent balloon ([id number]) 9:44:33 Reinflate Prox LAD RICH RX 2.5 x 2 21 00:10 stent 12 stent balloon ([id number]) Device Usage Item Name Manufacture Quantity Catalog Number Hospital Part Current M inimal Lot# / Charge Number Stock Stock Serial# Code ACIST Syringe Acist 1 67022 037190 513749 795251 2 0 (99227) Medical Systems Inc Medline Cath Medline 1 [id number] 986257 96442 060128 5 Pack ([id number]) Bag Decanter Microtek 1 2002S 847796 38723 361055 5 (2002S) Medical Inc. ACIST Hand Acist 1 93475 409042 163046 456917 5 Control Medical (83927) Systems Inc ACIST Manifold Acist 1 13840 495681 664775 271377 5 (01195) Medical Systems Inc Tegaderm 4 x 4 3M 2 1626W 726923 890729 674568 5 (1626W) MBrace Wrist Advanced 1 140-0250-00 195099 10594 626481 5 Support Vascular ([id number]) Dynamics SHEATH 6FR Cardinal 1 2295362 720962 8707291 821646 5 RAIN (7048615) Health EMERALD Guide Cardinal 1 502-455 936123 339312 364311 5 Wire (730-530) Health DIAGNOSTIC Terumo 1 66-9635 301440 790989 903741 5 [place] 110cm 5 Fr catheter (937358) INFLATOR Merit Merit 1 XG5592 738522 307018 553494 1 5 [employer] (RQ9448) CHOICE PT [place] 1 [id number] 418705 394341 340318 5 Extra Support Scientific 182cm wire (6168878W5) GUIDE 6FR Cardinal 1 28874453 160278 067754 286123 1 0 XBLAD 3.5 Health catheter (33631417) GUIDE 6FR AR Medtronic 1 [id number] 566727 16941 144708 1 2.0 catheter (OJ2PD52) RICH RX 2.5 x Medtronic 1 [id number] 457314 2461210 862779 5 [id number] 12 stent ([id number]) ZEPHYR REGULAR Cardinal 1 353733 443110 7794538 179747 5 TR BAND [facility] (319122) Signature Audit [place] Stage Time Signature Unsigned Intra-Procedure 11/22/2019 Rylie Daily 9:50:35 AM RT(R) Intra-Procedure 11/22/2019 Radha Yates 9:50:58 AM RN Intra-Procedure 11/22/2019 Gurwinder Silva 9:51:27 AM Signatures Performing Physician : Signature : Gurwinder Silva MD Date : Time : Monitor : Rylie Daily RT Signature : Date : Time : Nurse : Radha Yates RN Signature : Date : Time : [facility] [address] [place] [address]
--- NOTE | ~2019-11-22 | OP ---
PATIENT NAME: PHILL OH MEDICAL RECORD: [id number] :35 LOCATION:D.CAT ADMISSION DATE: SURGEON: JILLIAN BYRNES MD DATE OF OPERATION: 11/22/2019 PROCEDURES: 1. PTCA stent LAD. 2. Left heart catheterization. 3. Selective coronary angiography. 4. Left ventriculogram. INDICATION: Angina and coronary artery disease. DESCRIPTION OF PERFORMED: After informed consent was obtained and after detailed explanation of risks, benefits as well as alternative therapies, the patient elected to proceed with angiogram and angioplasty. The right radial area was prepped and draped in normal sterile fashion. Right radial artery was cannulated via modified Seldinger technique with placement of 6-British sheath. All catheters exchanged through this sheath. FINDINGS: The left ventriculogram was performed in a standard 30-degree VALLES view, reveals good cardiac wall motion, ejection fraction estimated 60%. SELECTIVE CORONARY ANGIOGRAPHY: 1. Left main is with no significant angiographic disease. 2. Left anterior descending has previously placed stents with no significant restenosis. However, there is 90% stenosis after the previously placed stents, this correlates with perfusion defect on nuclear stress testing. 3. The left circumflex has mild irregularities, but no flow-limiting stenosis. 4. Right coronary has mild irregularities, but no flow-limiting stenosis. PTCA STENT OF THE LAD: The stent used was a 2.5 x 12 mm Matthews. Result was 0% residual stenosis. OVERALL IMPRESSION: Successful percutaneous transluminal coronary angioplasty stent of the left anterior descending going from 90% initial stenosis to 0% residual. TRANSINT:[id number] Voice Confirmation ID: [id number] DOCUMENT ID: [id number] JILLIAN BYRNES MD CC: [id number] DICTATION DATE: 11/22/19 0952 LEGAL COLLECTOR: 11/22/19 1444 DEP CLI 11/22/19 [facility] [address] [place] [place] [id number]
[2019-11-22] MEDS ORDERED: CATAPRES0.1 MG PO (08:11)
[2019-11-22] MEDS ORDERED: BETAPACE 80 MG80 MG PO (08:12)
[2019-11-22 08:24] VITALS: BP 216/86; Ht 167.6 cm; Wt 85.0 kg
[2019-11-22 08:49] LABS: BASOPHILS 0.5 % (0-2); EOSINOPHILS 2.7 % (0-7); HEMATOCRIT 38.5 % (36.0-48.0); HEMOGLOBIN 12.5 g/dL (12-16); IMMATURE GRANULOCYTES 0.2 % (0-5); LYMPHOCYTES 27.4 % (15-50); MCH 30.2 pg (26.0-34.0); MCHC 32.5 g/dL (31.0-37.0); MEAN PLATELET VOLUME 8.7 fL (7.4-10.4); MONOCYTES 12.9 % (2-11); NEUTROPHILS 56.3 % (40-80); RBC 4.14 10x6/uL (4.00-5.40); RDW 12.9 % (11.5-14.5); WBC 4.4 10x3/uL (4.8-10.8)
[2019-11-22 08:59] LABS: PLATELET COUNT 191 10x3/uL (130-400)
[2019-11-22 09:22] LABS: ALT (SGPT) 13 U/L (10-68); CALC OSMOLALITY 287 mosm/kg (275-300); CALCIUM 9.1 mg/dL (8.5-10.1); CARBON DIOXIDE 29.2 mmol/L (21.0-32.0); CHLORIDE - SERUM 105 mmol/L (98-107); CHOL - HDL RATIO 3.4 ratio (2.3-4.1); CHOLESTEROL, TOTAL 186 mg/dL (0-200); CREATININE - SERUM 0.6 mg/dL (0.6-1.3); GLUCOSE 212 mg/dL (74-106); HDL CHOLESTEROL 54 mg/dL (32-96); LDL CHOLESTEROL 107 mg/dL (0-100); POTASSIUM - SERUM 3.1 mmol/L (3.5-5.1); SODIUM 142 mmol/L (136-145); TRIGLYCERIDE 125 mg/dL (30-200); UREA NITROGEN 10 mg/dL (7-18); eGFR NON AFRICAN AMERICAN > 90 mL/min (90-120)
--- NOTE | 2019-11-22 10:01 | NUR ---
PT ARRIVED BY STRETCHER. PLACED ON MONITORS. ASSESSMENT COMPLETED. VSS. FAMILY AT BEDSIDE AT THIS TIME.
[2019-11-22] MEDS ORDERED: PLAVIX75 MG PO (10:06)
--- NOTE | 2019-11-22 10:16 | NUR ---
RIGHT WRIST Z BAND IN PLACE. NO BLEEDING/HEMATOMA NOTED. CALL LIGHT WITHIN REACH. FAMILY AT BEDSIDE.
--- NOTE | 2019-11-22 10:45 | NUR ---
PT RESTING COMFORTABLY. RIGHT WRIST Z BAND IN PLACE. NO BLEEDING/HEMATOMA NOTED. VSS AT THIS TIME. CALL LIGHT WITHIN REACH. FAMILY AT BEDSIDE.
--- NOTE | 2019-11-22 11:15 | NUR ---
RIGHT WRIST Z BAND IN PLACE. NO BLEEDING/HEMATOMA NOTED. VSS. PT RESTING COMFORTABLY. FAMILY AT BEDSIDE.
--- NOTE | 2019-11-22 11:45 | NUR ---
PT RESTING COMFORTABLY. VSS. RIGHT WRIST Z BAND IN PLACE. NO BLEEDING/HEMATOMA NOTED. CALL LIGHT WITHIN REACH. FAMILY AT BEDSIDE.
--- NOTE | 2019-11-22 12:30 | NUR ---
PT RESTING COMFORTABLY. VSS. RIGHT WRIST Z BAND IN PLACE. NO BLEEDING/HEMATOMA NOTED.
--- NOTE | 2019-11-22 13:00 | NUR ---
2cc OF AIR REMOVED FROM Z BAND. NO BLEEDING/HEMATOMA NOTED. TOLERATED WELL. PT ON BEDPAN. VOIDED APPROX 300cc OF CLEAR YELLOW URINE WITHOUT DIFFICULTY. PAN-CARE GIVEN. PT SET UP WITH SANDWICH TRAY AND DRINK. NO OTHER NEEDS AT THIS TIME.
--- NOTE | 2019-11-22 13:15 | NUR ---
2cc OF AIR REMOVED FROM Z BAND. NO BLEEDING/HEMATOMA NOTED. VSS. CALL LIGHT WITHIN REACH. DENIES NAUSEA/PAIN AT THIS TIME.
--- NOTE | 2019-11-22 13:30 | NUR ---
3cc OF AIR REMOVED FROM Z BAND. NO BLEEDING/HEMATOMA NOTED. CALL LIGHT WITHIN REACH. FAMILY AT BEDSIDE.
--- NOTE | 2019-11-22 14:00 | NUR ---
PIV D/C'D WITH CATH TIP INTACT. TOLERATED WELL. PT INSTRUCTED TO GET UP AND DRESSED. FAMILY AT BEDSIDE AND ASSISTED. PT TAKEN TO RESTROOM BY WHEELCHAIR AND VOIDED WITHOUT DIFFICULTY.
--- NOTE | 2019-11-22 14:15 | NUR ---
RIGHT WRIST Z BAND REMOVED AND DRESSING APPLIED. TOLERATED WELL. NO BLEEDING/HEMATOMA NOTED. RIGHT WRIST BRACE IN PLACE. DISCUSSED DISCHARGE INSTRUCTIONS WITH PT AND PT'S FAMILY. THEY VOICED UNDERSTANDING.
--- NOTE | 2019-11-22 14:30 | NUR ---
PT TAKEN OUT TO VEHICLE BY WHEELCHAIR. NO S/S OF DISTRESS NOTED. ALL BELONGINGS AND PAPERWORK IN HAND. RIGHT WRIST DRESSING C/D/I. NO S/S OF HEMATOMA NOTED.
== END 2019-11-22 14:30 | disposition home or self-care (01) ==
LOC: D.CATH 07:40
PROVIDERS: ATTEND Internal Medicine Interventional Cardiology
DX: I25.119 Atherosclerotic heart disease of native coronary artery with unspecified angina pectoris (principal); E11.9 Type 2 diabetes mellitus without complications; Z79.84 Long term (current) use of oral hypoglycemic drugs; I10 Essential (primary) hypertension; E78.5 Hyperlipidemia, unspecified; R06.09 Other forms of dyspnea; I48.0 Paroxysmal atrial fibrillation
CPT/HCPCS: 93458; C9600

== ENCOUNTER 2020-01-20 15:22 | Inpatient (IN) | payer MEDICARE, BC ==
[~2020-01-20] VITALS: Ht 167.6 cm; Wt 85.7 kg
[~2020-01-20 15:22] MED LIST changes: +BETAPACE 80 MG80 MG PO; +CATAPRES0.1 MG PO
[2020-01-20 16:03] LABS: BASOPHILS 0.3 % (0-2); EOSINOPHILS 0.7 % (0-7); HEMATOCRIT 47.3 % (36.0-48.0); IMMATURE GRANULOCYTES 1.7 % (0-5); LYMPHOCYTES 19.7 % (15-50); MCHC 31.7 g/dL (31.0-37.0); MCV 91.3 fL (80.0-100.0); MEAN PLATELET VOLUME 8.6 fL (7.4-10.4); NEUTROPHILS 68.6 % (40-80); PLATELET COUNT 201 10x3/uL (130-400); RBC 5.18 10x6/uL (4.00-5.40); RDW 12.7 % (11.5-14.5); WBC 7.5 10x3/uL (4.8-10.8)
[2020-01-20 16:20] LABS: CALC OSMOLALITY 278 mosm/kg (275-300); CALCIUM 9.8 mg/dL (8.5-10.1); CARBON DIOXIDE 27.7 mmol/L (21.0-32.0); CHLORIDE - SERUM 100 mmol/L (98-107); CREATININE - SERUM 0.8 mg/dL (0.6-1.3); POTASSIUM - SERUM 4.1 mmol/L (3.5-5.1); SODIUM 138 mmol/L (136-145); UREA NITROGEN 19 mg/dL (7-18); eGFR NON AFRICAN AMERICAN 72 mL/min (90-120)
[2020-01-20 16:21] LABS: GLUCOSE 108 mg/dL (74-106); INR 1.02 (0.85-1.17); PROTIME 13.3 SECONDS (11.6-15.0)
[2020-01-20 16:22] LABS: APTT 28.6 SECONDS (22.8-39.4)
[2020-01-20 16:38] LABS: ALBUMIN 4.2 g/dL (3.4-5.0); ALKALINE PHOSPHATASE 99 U/L (30-120); ALT (SGPT) 14 U/L (10-68); BILIRUBIN - TOTAL 0.46 mg/dL (0.2-1.3); CKMB 0.6 U/L (0.0-3.6); CREATINE KINASE 27 UL (21-215); MAGNESIUM - SERUM 1.7 mg/dL (1.8-2.4); PROTEIN - SERUM 7.7 g/dL (6.4-8.2); TROPONIN-I < 0.017 ng/mL (0.000-0.060)
--- NOTE | 2020-01-20 18:27 | NUR ---
ATTEMPTED REPORT, SPOKE WITH HUBERT MEJÍA, STATED SHE WOULD RETURN MY CALL AFTER TAKEN A PATIENT TO REHAB.
--- NOTE | 2020-01-20 20:00 | NUR ---
PATIENT ARRIVED FROM ER VIA WHEELCHAIR, ESCORTED BY HOSPITAL STAFF @ 1915. NO S/S OF ACUTE DISTRESS. NO C/O AT THIS TIME. PATIENT HAS LEFT AC IV, SALINE LOC. IV IS PATENT WITHOUT REDNESS, SWELLING, OR TENDERNESS. PATIENT HAS TELEMETRY: 50 SINUS QUYNH. PATIENT IS UP WITH ASSISTANCE. PATIENT EXPLAINED TO ME THAT SHE HAS FALLEN BEFORE AND "WAS FOUND BY MY DAUGHTER. I DON'T KNOW WHAT HAPPENED. WHEN I WOKE UP I HAD THIS HUGE GOOSE EGG ON MY HEAD." PATIENT DIDN'T UNDERSTAND WHY WE THEN HAD A FRANCES ALARM ON THE BED WHEN SHE TRIED TO GET UP ON HER OWN. I EXPLAINED THAT SINCE SHE IS OLDER AND MORE PRONE TO FALLS, AND HAS FALLEN BEFORE. IT WOULD BE SAFER FOR HER TO GET UP WITH ONE OF THE STAFF, OR WE CAN COME IN AND ASSIST HER WHEN THE BED ALARM ALERTS US THAT SHE HAS GOTTEN UP. CALL LIGHT IN PLACE. WILL CONTINUE TO MONITOR.
[2020-01-20 21:10] VITALS: BMI 30.5
[2020-01-21] VITALS: BP 124/52
[2020-01-21 04:00] VITALS: BP 155/52
--- NOTE | 2020-01-21 07:20 | NUR ---
ALERT AND ORIENTED, RESTING IN BED WITH EYES OPEN. NO C/O PAIN. NO S/S OF ACUTE DISTRESS NOTED. UP WITH STANBY ASSIST. IV TO LEFT AC, SL. SITE PATENT WITHOUT REDNESS OR SWELLING. ON TELEMETRY 52 SB. DENIES ANY NEEDS AT THIS TIME. CALL LIGHT IN REACH WILL CONTINUE TO MONITOR.
[2020-01-21 07:21] LABS: ALBUMIN 3.2 g/dL (3.4-5.0); ALKALINE PHOSPHATASE 71 U/L (30-120); CALC OSMOLALITY 281 mosm/kg (275-300); CALCIUM 9.3 mg/dL (8.5-10.1); CARBON DIOXIDE 29.6 mmol/L (21.0-32.0); CHLORIDE - SERUM 103 mmol/L (98-107); CHOL - HDL RATIO 3.5 ratio (2.3-4.1); CHOLESTEROL, TOTAL 164 mg/dL (0-200); CKMB 0.4 U/L (0.0-3.6); CREATINE KINASE 13 UL (21-215); CREATININE - SERUM 0.6 mg/dL (0.6-1.3); GLUCOSE 120 mg/dL (74-106); HDL CHOLESTEROL 47 mg/dL (32-96); LDL CHOLESTEROL 103 mg/dL (0-100); LDL-HDL RATIO 2.2 ratio (1.5-3.5); MAGNESIUM - SERUM 1.7 mg/dL (1.8-2.4); PHOSPHOROUS 4.4 mg/dL (2.5-4.9); POTASSIUM - SERUM 3.7 mmol/L (3.5-5.1); PROTEIN - SERUM 6.2 g/dL (6.4-8.2); SODIUM 139 mmol/L (136-145); TRIGLYCERIDE 71 mg/dL (30-200); TROPONIN-I < 0.017 ng/mL (0.000-0.060); UREA NITROGEN 20 mg/dL (7-18); eGFR NON AFRICAN AMERICAN > 90 mL/min (90-120)
[2020-01-21 07:24] LABS: ALT (SGPT) 8 U/L (10-68)
[2020-01-21 07:28] LABS: HEMATOCRIT 42.3 % (36.0-48.0); HEMOGLOBIN 13.5 g/dL (12-16); LYMPHOCYTES 21.2 % (15-50); MCH 28.7 pg (26.0-34.0); MCHC 31.9 g/dL (31.0-37.0); MCV 89.8 fL (80.0-100.0); MEAN PLATELET VOLUME 8.4 fL (7.4-10.4); PLATELET COUNT 215 10x3/uL (130-400); RBC 4.71 10x6/uL (4.00-5.40); RDW 12.8 % (11.5-14.5); WBC 5.9 10x3/uL (4.8-10.8)
[2020-01-21 08:47] VITALS: BP 153/61
[2020-01-21 09:27] VITALS: BMI 30.5
[2020-01-21 11:00] VITALS: BP 128/43
[2020-01-21 11:41] VITALS: Ht 167.6 cm; Wt 85.7 kg
[2020-01-21 15:00] VITALS: BP 181/62
--- NOTE | 2020-01-21 16:45 | NUR ---
SPOKE WITH RUBEN SALMON OVER THE PHONE. SHE WOULD LIKE TO HAVE THE SALESPERSON FLORIST SUPPLIES OR HOSPITALIST CALL HER IF THEY DECIDE TO DO ANY INVASIVE PROCEDURES ON PATIENT.
--- NOTE | 2020-01-21 17:59 | NUR ---
ALERT AND ORIENTED, RESTING IN BED WITH EYES OPEN. NO C/O PAIN. NO S/S OF ACUTE DISTRESS NOTED. DENIES ANY NEEDS AT THIS TIME. CALL LIGHT IN REACH. WILL CONTINUE TO MONITOR.
--- NOTE | 2020-01-21 19:00 | NUR ---
BEDSIDE REPORT RECEIVED AND CARE OF PT ASSUMED. PT LYING IN LOW GARNETT'S POSITION WITH EYES CLOSED. IV TO RIGHT AC SALINE LOCKED. TELEMETRY IN PLACE AND READING SR AT THIS ASSESSMENT. WILL MONITOR FOR NEEDS.
[2020-01-21 20:01] VITALS: BP 169/58
--- NOTE | 2020-01-21 20:13 | NUR ---
HS MEDICATIONS GIVEN. FSBS 169 THIS CHECK REQUIRING COVERAGE WITH 2 UNITS OF INSULIN PER SLIDING SCALE. WILL CONTINUE TO MONITOR FOR NEEDS.
--- NOTE | 2020-01-21 20:30 | NUR ---
PROVIDED HS SNACK OF DIOMEDES CRACKERS AND PEANUT BUTTER PER DIET ORDER.
[2020-01-22] VITALS: BP 164/58
[2020-01-22 04:00] VITALS: BP 210/75
--- NOTE | 2020-01-22 05:12 | NUR ---
GAVE CLONIDINE 0.1 MG PO PER PRN ORDER FOR ELEVATED BP OF 210/75, AND TYLENOL 500 MG PO PER PRN ORDER FOR C/O PAIN IN LEGS. WILL MONITOR FOR EFFECTIVENESS.
[2020-01-22 05:56] LABS: HEMATOCRIT 43.7 % (36.0-48.0); LYMPHOCYTES 22.1 % (15-50); MCH 28.7 pg (26.0-34.0); MCV 89.7 fL (80.0-100.0); MEAN PLATELET VOLUME 8.7 fL (7.4-10.4); PLATELET COUNT 188 10x3/uL (130-400); RBC 4.87 10x6/uL (4.00-5.40); RDW 12.7 % (11.5-14.5); WBC 4.7 10x3/uL (4.8-10.8)
[2020-01-22 06:00] LABS: CALC OSMOLALITY 282 mosm/kg (275-300); CALCIUM 9.3 mg/dL (8.5-10.1); CARBON DIOXIDE 27.4 mmol/L (21.0-32.0); CHLORIDE - SERUM 104 mmol/L (98-107); CREATININE - SERUM 0.6 mg/dL (0.6-1.3); GLUCOSE 147 mg/dL (74-106); MAGNESIUM - SERUM 1.5 mg/dL (1.8-2.4); POTASSIUM - SERUM 3.7 mmol/L (3.5-5.1); SODIUM 140 mmol/L (136-145); eGFR NON AFRICAN AMERICAN > 90 mL/min (90-120)
[2020-01-22 06:01] LABS: UREA NITROGEN 14 mg/dL (7-18)
--- NOTE | 2020-01-22 07:20 | NUR ---
RECEIEVED PT FROM SLOT MACHINE DEPARTMENT FLOORPERSON. UPON ENTERING PT WAS SUPINE IN BED WITH EYES CLOSED, BREATHING EVEN AND UNLABORED, NO S/S OF DISTRESS NOTED AT THIS TIME. BED IN LOWEST POSITION, BED RAILS X2, CALL LIGHT WITHIN REACH. WILL CONTINUE TO MONITOR.
--- NOTE | 2020-01-22 09:05 | NUR ---
ADMINISTERED MORNING MEDICATIONS AT THIS TIME, NO DIFFICULTY. PERFORMED ASSESSMENT AT THIS TIME. PT UPRIGHT ON BEDSIDE EATING BREAKFAST. DENIES ANY NEEDS AT THIS TIME. WILL CONTINUE TO MONITOR.
--- NOTE | 2020-01-22 12:34 | NUR ---
PT COMPLAINT OF MAGNESIUM SULFATE BURING IN IV. HUNG ADDITIONAL BAG OF NS 500ML TO HELP DILUTE. PT STATES IT HELPED. UP RIGHT ON BEDSIDE EATING LUNCH. DENIES ANY OTHER NEEDS AT THIS TIME. WILL CONTINUE TO MONITOR.
[2020-01-22 12:40] VITALS: BP 134/56
--- NOTE | 2020-01-22 13:44 | NUR ---
REMOVED IN FROM RIGHT AC DUE TO INFILTRATION. CATHETER TIP INTACT, TOLERATED WELL. COVERED SITE WITH 2X2'S AND TAPE. WILL RESITE IV. PT STATES SHE HAS A PROCEDURE IN THE MORNING, WILL CONFIRM WITH DR. DURHAM. RESTING COMFORTABLY IN BED. DENIES ANY NEEDS. WILL CONTINUE TO MONITOR.
--- NOTE | 2020-01-22 16:28 | NUR ---
ADMINISTERED MEDICATION AND ASSESSED BLOOD SUGAR. 2 UNITS OF INSULIN GIVEN IN THE LEFT ARM PER SLIDING SCALE FOR SUGAR OF 170. PT IS UPRIGHT ON BEDSIDE. DENIES ANY OTHER NEEDS AT THIS TIME. WILL CONTINUE TO MONITOR.
--- NOTE | 2020-01-22 16:39 | NUR ---
I have reviewed this patient and I concur with the Shift Assessment completed by the Licensed Practical Nurse today this shift.
[2020-01-22 17:37] VITALS: BP 146/68
--- NOTE | 2020-01-22 19:00 | NUR ---
BEDSIDE REPORT RECEIVED AND CARE OF PT ASSUMED. PT LYING IN HIGH GARNETT'S POSITION WATCHING TV. PT HAVING PROCEDURE IN AM AND NEEDS CONSENT, HIBACLENS, AND NPO STATUS AFTER MIDNIGHT.
[2020-01-22 20:01] VITALS: BP 134/48
--- NOTE | 2020-01-22 20:38 | NUR ---
HS MEDICATIONS GIVEN.
--- NOTE | 2020-01-22 21:05 | NUR ---
HIBACLENS BATH PERFORMED. WILL REPEAT IN AM.
[2020-01-23] VITALS (56 sets, daily range): BP systolic 110–234; BP diastolic 38–108
--- NOTE | 2020-01-23 01:58 | NUR ---
URINE COLLECTED FOR ORDERED STUDIES AND DELIVERED TO LAB.
[2020-01-23 02:30] LABS: BILIRUBIN NEGATIVE (NEGATIVE); GLUCOSE 250 mg/dL (NEGATIVE); KETONE NEGATIVE (NEGATIVE); NITRITE NEGATIVE (NEGATIVE); UROBILINOGEN NORMAL (NORMAL)
[2020-01-23 05:17] LABS: HEMATOCRIT 43.5 % (36.0-48.0); HEMOGLOBIN 13.8 g/dL (12-16); LYMPHOCYTES 21.2 % (15-50); MCH 28.4 pg (26.0-34.0); MCHC 31.7 g/dL (31.0-37.0); MCV 89.5 fL (80.0-100.0); MEAN PLATELET VOLUME 8.3 fL (7.4-10.4); NEUTROPHILS 59.7 % (40-80); PLATELET COUNT 192 10x3/uL (130-400); RBC 4.86 10x6/uL (4.00-5.40); RDW 12.5 % (11.5-14.5); WBC 5.1 10x3/uL (4.8-10.8)
[2020-01-23 05:25] LABS: CALC OSMOLALITY 280 mosm/kg (275-300); CALCIUM 9.2 mg/dL (8.5-10.1); CARBON DIOXIDE 30.1 mmol/L (21.0-32.0); CHLORIDE - SERUM 104 mmol/L (98-107); CREATININE - SERUM 0.6 mg/dL (0.6-1.3); GLUCOSE 144 mg/dL (74-106); MAGNESIUM - SERUM 1.8 mg/dL (1.8-2.4); POTASSIUM - SERUM 4.2 mmol/L (3.5-5.1); SODIUM 139 mmol/L (136-145); UREA NITROGEN 13 mg/dL (7-18); eGFR NON AFRICAN AMERICAN > 90 mL/min (90-120)
--- NOTE | 2020-01-23 06:00 | NUR ---
PRE OP MEDICATIONS GIVEN. PT CONSENTED FOR AM PROCEDURE.
--- NOTE | 2020-01-23 06:23 | NUR ---
BLOOD PRESSURES ELEVATED THIS AM. CALLED DR SAPP AND RECEIVED ORDER TO GIVE APPRESOLINE 10 MG IVP NOW.
--- NOTE | 2020-01-23 07:30 | NUR ---
PT WAS PRE-OPED AND READY TO BE TAKEN TO SURGERY, NO S/SX OF DISTRESS, TECH IN WITH PT, IV TO RT FA SL, CL IN REACH, DEAN HERE AND READY TO TRANSPORT PT
--- NOTE | 2020-01-23 07:38 | NUR ---
RECEIVED CALL FROM SURGERY AND WAS QUESTIONED ABOUT PT ABX, PER MAR PT HAS NO ABX ORDERED, RELAYED FINDINGS TO RAHEEM IN SURGERY.
--- NOTE | 2020-01-23 10:42 | NUR ---
PT ARRIVED TO CVICU ROOM. ATTACHED TO CVICU MONITOR AND INVOS MONITOR. PT RESTING COMFORTABLY. AROUSES TO VERBAL STIMULI. PT NOT COMPLAINIING OF ANY PAIN. MOVES ALL EXTREMITIES. CURRENTLY ON NITRO AND CLEVIPREX DRIP. WILL CONTINUE TO MONITOR
--- NOTE | 2020-01-23 13:30 | NUR ---
DR DURHAM NOTIFIED THROUGH TEXT OF INVOS MONITOR READINGS. ORDER RECEIVED TO D/C INVOS MONITOR AND REMOVE LEADS.
--- NOTE | 2020-01-23 16:45 | NUR ---
DR DURHAM PAGED REGARDING PT CONDITION. PT IS CONFUSED AND NOT MAKING SENSE. DOES NOT FOLLOW COMMANDS. DOES NOT ANSWER QUESTIONS APPROPRIATELY.
--- NOTE | 2020-01-23 16:47 | MORECARE ---
CASE MANAGEMENT DISCHARGE SUMMARY PATIENT: PHILL OH UNIT: [id number] ADM DATE: 01/22/20 AGE: 84 : 35 SEX: F ROOM/BED: [facility] AUTHOR: VLADISLAV VALDEZ PHYSICIAN: REFERRING PHYSICIAN: FADI CORREA MD DATE OF SERVICE: 01/23/20 Discharge Plan Patient Name: PHILL OH Facility: [facility]:[place] : 1935 Planned Disposition: Anticipated Discharge Date: Discharge Date: Expected LOS: Initial Reviewer: [email or web address] Initial Review Date: 01/20/2020 Generated: 01/23/20 5:47 pm Comments DCP- Discharge Planning Updated by [email or web address]: Juhi Lawrence on 01/23/20 3:[address] CM attempted to see patient and discuss discharge planning needs. Patient is currently drowsy post -op and unable to answer questions. CM will continue to follow and assist as needed with discharge planning / needs. DCPIA - Discharge Planning Initial Assessment Updated by [email or web address]: Juhi Lawrence on 01/23/20 4:41 pm * Is the patient Alert and Oriented? Yes * How many steps to enter\exit or inside your home? Patient Name: PHILL OH Page [id number] at 1647 All edits/amendments must be made on the electronic document DICTATION DATE: 01/23/201646 FIELD HEALTH OFFICER: MARIAELENA 01/23/201646 RPT#: [id number] DC DATE: STATUS: ADM IN [facility] [address] [place] [address] END OF REPORT
--- NOTE | 2020-01-23 16:55 | NUR ---
DR DURHAM CALLED. UPDATE GIVEN. ORDER RECEIVED TO GIVE HEPARIN BOLUS AND START HEPARIN INFUSION AT 1000 UNITS/HR. ABG ORDERED WELL.
--- NOTE | 2020-01-23 17:10 | NUR ---
DR DURHAM UPDATED. CAROTID DOPPLER ULTRASOUND ORDERED.
--- NOTE | 2020-01-23 18:15 | NUR ---
CERTIFIED NURSE AIDE IN ROOM. DRESSING REMOVED FROM LT NECK INCISION SITE PER DR DURHAM.
--- NOTE | 2020-01-23 19:00 | NUR ---
PT ASSESSMENT COMPLETED AT THIS TIME, NO CHANGES NOTED FROM NURSE REPORT, PT RESTING WITH EYES CLOSED, PT AWAKES TO NAME, PT KNOWS SHE HAD NECK SURGERY, AND THAT SHE IS IN THE HOSPITAL, PT IS ABLE TO MOVE ALL EXT ON COMMAND WITH MODERATE STRENGTH. PT DENIES PAIN, VSS STABLE ON NITRO AND CLEVIPREX, WILL MONTIOR FOR CHANGES
--- NOTE | 2020-01-23 20:45 | NUR ---
DR. DURHAM WAS CALLED ABOUT CRITCIAL PTT, MD ADVISED TO MONTOR AND RECHECK IN PTT IN AM, MAINTAIN SYSTOLIC B/P 140-160, AND CALL WITH AND NEURO CHECKS
--- NOTE | 2020-01-23 21:46 | NUR ---
PT AWAKENED AND WAS GIVEN SOME WATER TO DRINK, PT SEEMED TO HAVE SOME DIFFCULITY WITH SWALLOWING ALL THE WATER, PT WAS ABLE TO TAKE NIGHT TIME MEDS, WITH VERY SMALL SIP OF WATER, PT DENIES PAIN OR SORE THROAT AT THIS TIME
--- NOTE | 2020-01-23 23:00 | NUR ---
PT REASSESSMENT COMPLETED AT THIS TIME, NO CHANGES NOTED FROM PREVIOUS EXAM, VSS ON NITRO AND CLEVEPREX, WILL MONITOR AND TITRATE NEEDED
[2020-01-24] VITALS (65 sets, daily range): BP systolic 119–201; BP diastolic 38–98
--- NOTE | 2020-01-24 01:05 | NUR ---
PT ASSISSTED UP TO DANGLE ON BEDSIDE, PT DENIED PAIN OR DISCOMFORT, PT THOUGHT SHE WAS AT HOME, PT ADVISED THAT SHE HAD SURGERY ON HER NECK, AND CORRECTLY STATED THE MONTH AND YEAR. PT WAS UNABLE TO USE THE IS CORRECTLY, WILL ATTEMPT AGAIN WHEN PATIENT IS MORE ALERT
--- NOTE | 2020-01-24 03:00 | NUR ---
PT REASSESSMENT COMPLETED AT THIS TIME, NO CHANGES NOTED FROM PREVIOUS EXAM, VSS
--- NOTE | 2020-01-24 05:25 | NUR ---
PT GIVEN CHG BATH AT THIS TIME AND ASSISTED UP TO BEDSIDE CHAIR, PT WAS ABLE TO TAKE SMALL STEPS WITH HAND HOLD ASSISTANCE.
[2020-01-24 06:06] LABS: HEMATOCRIT 35.7 % (36.0-48.0); HEMOGLOBIN 11.3 g/dL (12-16); LYMPHOCYTES 16.7 % (15-50); MCH 28.7 pg (26.0-34.0); MCHC 31.7 g/dL (31.0-37.0); MCV 90.6 fL (80.0-100.0); NEUTROPHILS 71.9 % (40-80); PLATELET COUNT 190 10x3/uL (130-400); RBC 3.94 10x6/uL (4.00-5.40); RDW 12.6 % (11.5-14.5)
[2020-01-24 06:13] LABS: CALC OSMOLALITY 281 mosm/kg (275-300); CALCIUM 8.5 mg/dL (8.5-10.1); CARBON DIOXIDE 29.5 mmol/L (21.0-32.0); CHLORIDE - SERUM 106 mmol/L (98-107); CREATININE - SERUM 0.5 mg/dL (0.6-1.3); GLUCOSE 158 mg/dL (74-106); MAGNESIUM - SERUM 1.7 mg/dL (1.8-2.4); POTASSIUM - SERUM 3.9 mmol/L (3.5-5.1); SODIUM 140 mmol/L (136-145); UREA NITROGEN 12 mg/dL (7-18); eGFR NON AFRICAN AMERICAN > 90 mL/min (90-120)
--- NOTE | 2020-01-24 10:33 | NUR ---
0700 PT RECIEVED UP IN CHAIR ALERT AN DOIENTED VSS DENIES PAIN SEE SHIFT ASSESSMENT FOR DETAILS 0900 AM MEDS GIVEN, A LINE DCD PER PROTOCOL 1000 LD DRAIN REMOVED BY BISI TOMAS DCD PER PROTOCOL
--- NOTE | 2020-01-24 11:06 | OP ---
PATIENT NAME: PHILL OH MEDICAL RECORD: [id number] :35 LOCATION:[id number] ADMISSION DATE:01/22/20 SURGEON: CLAUDE DURHAM MD DATE OF OPERATION: 01/23/2020 SURGEON: Claude Durham MD PROCEDURE: Left carotid endarterectomy. PREOPERATIVE DIAGNOSES: Left carotid stenosis and transient ischemic attack. POSTOPERATIVE DIAGNOSIS: Ulcerated left carotid plaque. ANESTHESIA: General endotracheal anesthesia. ESTIMATED BLOOD LOSS: 50 cc. COMPLICATIONS: None. SPECIMENS: Plaque with ulcer. CONDITION: Stable. DISPOSITION: CV ICU. OPERATIVE FINDINGS: 1. Discrete 5-mm ulcer and plaque in the proximal common carotid with no adherent thrombus. 2. EEG changes after clamping that resolved with placement of a shunt. 3. Neurologically intact to ICU. OPERATIVE INDICATION: Left hemispheric TIA, recurrent. PROCEDURE IN DETAIL: The patient was brought to the operative suite. General anesthesia was obtained. The patient was prepped and draped. An oblique incision was made in the left neck, taken down through the subcutaneous tissue down to the common carotid, which was encircled. Thyroid branch and external carotid were dissected out, encircled with a vessel loop. Hypoglossal nerve was identified and kept out of harm's way. Several large facial venous branch were divided between ligatures. Distal internal carotid was dissected out. Heparin was given. After the heparin had circulated, backbleeding on the internal carotid was controlled with a bulldog clamp and flow with a vascular clamp and backbleeding of the external carotid and thyroid branch were controlled with vessel loops. The patient developed EEG changes at about 1-1/2 minutes after clamping and the cerebral oximetry, which was never above about 25 even prior to clamping had diminished some. Therefore, arteriotomy was made in the artery, taken out through the region of plaque and into a relatively normal region of internal carotid. A shunt was placed distally and allowed to backbleed and the bulb was inflated, then placed into the common carotid bulb was inflated and the shunt was aspirated. Flow was restored. EEG returned to normal. Also, during this time, the pressure had decreased to about 90 and the pressure was brought back up to about 150. No further EEG changes. The plaque was visualized with a discrete 5-mm ulcer as seen on the preoperative studies and the plaque was divided and the common carotid with an eversion endarterectomy of the external carotid. The plaque was divided beyond the ulcerated plaque in the internal OPERATIVE REPORT [id number] DEFIANCE,PHILL B carotid, where it was soft. Thorough irrigation was undertaken. All bits of loose debris were removed from the endarterectomy bed. The plaque was tacked distally with interrupted 7-0 sutures. CorMatrix patch was fashioned to the appropriate size and sutured along the edges of the arteriotomy, and while suturing the inferior portion the bulb on the common carotid came out requiring replacement. The anastomosis was completed, but prior to completing the anastomosis the shunt was removed. Thorough irrigation was undertaken. Anastomosis was completed. Flow restored first to the external carotid and then to the internal carotid. EEG was normal. Interrupted patch sutures were placed. Protamine was given. Thorough irrigation was undertaken. A drain was placed through a separate stab wound. Once hemostasis was ensured, antibiotic irrigation was performed wound was closed in 3 layers including Dermabond on the skin. Needle and sponge counts reported as correct. Anesthesia reversed. The patient neurologically intact to ICU. TRANSINT:[id number] Voice Confirmation ID: [id number] DOCUMENT ID: [id number] CLAUDE DURHAM MD at 1106 CC: CHELA KAUFMAN MD [id number] DICTATION DATE: 01/23/20 1113 HAND STEMMER: 01/23/20 1305 ADM IN [facility] [address] [place] [address]
--- NOTE | 2020-01-24 12:06 | MORECARE ---
CASE MANAGEMENT DISCHARGE SUMMARY PATIENT: PHILL OH UNIT: [id number] ADM DATE: 01/22/20 AGE: 84 : 35 SEX: F [facility] AUTHOR: VLADISLAV VALDEZ PHYSICIAN: REFERRING PHYSICIAN: FADI CORREA MD DATE OF SERVICE: 01/24/20 Discharge Plan Patient Name: PHILL OH Facility: [facility]:[place] : 1935 Planned Disposition: Home or Self Care Anticipated Discharge Date: Discharge Date: Expected LOS: Initial Reviewer: [email or web address] Initial Review Date: 01/20/2020 Generated: 01/24/20 1:05 pm DCP- Discharge Planning Updated by [email or web address]: Juhi Lawrence on 01/23/20 3:[address] CM attempted to see patient and discuss discharge planning needs. Patient is currently drowsy post -op and unable to answer questions. CM will continue to follow and assist as needed with discharge planning / needs. DCPIA - Discharge Planning Initial Assessment Updated by [email or web address]: Juhi Lawrence on 01/24/20 12:01 pm * Is the patient Alert and Oriented? Yes * How many steps to enter\exit or inside your home? * PCP SHAE * Pharmacy [facility] * Preadmission Environment Home Alone * ADLs Independent * Other Equipment WALKER, W/C * List name and contact numbers for known caregivers / representatives who currently or will assist patient after discharge: CECILY WARREN - DAUGHTER- [phone], * Verbal permission to speak to the caregivers and representatives has been obtained from the patient. Yes * Community resources currently utilized None * Additional services required to return to the preadmission environment? No * Can the patient safely return to the preadmission environment? Yes * Has this patient been hospitalized within the prior 30 days at any hospital? No Last DP export: 01/23/20 3:47 p Patient Name: PHILL OH Page [id number] at 1206 All edits/amendments must be made on the electronic document DICTATION DATE: 01/24/20 1205 INSTALLATION SUPERINTENDENT: DM 01/24/205 RPT#: [id number] DC DATE: STATUS: ADM IN [facility] [address] [place] [address] END OF REPORT
--- NOTE | 2020-01-24 12:07 | NUR ---
PT SEEN BY CASE MANAGEMENT THEN CALLED MYSELF TO ROOM STATING THAT SHE DIDNT WANT ANYONE IN HER HOUSE AND WOULDNT LET THE GUYS FROM BEFORE SEE HER AND SHE REFUSED, PT SEEMED TO BE DESCRIBING A PREVIOUS HOME PHYSICAL THERAPY SITUATION, DISCUSSED THAT THE UPPERS EDGE BURNISHER WOULD NOT BE GOING TO HER HOME, WAS REDIRECTED. DR GALEANA NURSE COURTNI NOTIFIED
--- NOTE | 2020-01-24 12:13 | MORECARE ---
CASE MANAGEMENT DISCHARGE SUMMARY PATIENT: PHILL OH UNIT: [id number] ADM DATE: 01/22/20 AGE: 84 : 35 SEX: F [facility] AUTHOR: JOSÉ MIGUELDOC PHYSICIAN: REFERRING PHYSICIAN: FADI CORREA MD DATE OF SERVICE: 01/24/20 Discharge Plan Patient Name: PHILL OH Facility: [facility]:[place] : 1935 Planned Disposition: Home or Self Care Anticipated Discharge Date: Discharge Date: Expected LOS: Initial Reviewer: [id number] Initial Review Date: 01/20/2020 Generated: 01/24/20 1:13 pm Comments DCP- Discharge Planning Updated by [id number]: Juhi Lawrence on 01/24/20 11:[address] Patient Name: PHILL OH Admission Status: ER Accout number: [id number] Admission Date: 01-22-2020 : 1935 Admission Diagnosis:UNSPECIFIED SPEECH DISTURBANCES Attending: FADI CORREA Current LOS: 2 Anticipated DC Date: Planned Disposition: Home or Self Care Primary Insurance: MEDICARE A & B Discharge Planning Comments: CM met with patient at bedside after explaining CM role and obtaining verbal consent. Patient became very agitated at CM when CM started asking personal questions regarding living situation.CM got permission to call and speak to patient's daughter. Patient lives at home alone where she is independent with his care and plans to return there upon discharge. Patient's daughter Cecily lives next door. Patient feels this would be a safe discharge. CM discussed availability / needs of home health and medical equipment. Patient has had a bad experience with home health in the past and is refusing home health. Patient denies any discharge needs at this time. Patient states she will have his family drive him home upon discharge. CM will continue to follow and assist as needed with discharge planning / needs. Marketing Services Coordinator: Juhi Lawrence DCP- Discharge Planning Updated by [id number]: Juhi Lawrence on 01/23/20 3:[address] CM attempted to see patient and discuss discharge planning needs. Patient is currently drowsy post -op and unable to answer questions. CM will continue to follow and assist as needed with discharge planning / needs. DCPIA - Discharge Planning Initial Assessment Updated by [email or web address]: Juhi Lawrence on 01/24/20 12:01 pm * Is the patient Alert and Oriented? Yes * How many steps to enter\exit or inside your home? * PCP SHAE * Pharmacy [facility] * Preadmission Environment Home Alone * ADLs Independent * Other Equipment WALKER, W/C * List name and contact numbers for known caregivers / representatives who currently or will assist patient after discharge: CECILY WARREN - DAUGHTER- [phone], * Verbal permission to speak to the caregivers and representatives has been obtained from the patient. Yes * Community resources currently utilized None * Additional services required to return to the preadmission environment? No * Can the patient safely return to the preadmission environment? Yes * Has this patient been hospitalized within the prior 30 days at any hospital? No Last DP export: 01/24/20 11:06 a Patient Name: PHILL OH Page [id number] at 1213 All edits/amendments must be made on the electronic document DICTATION DATE: 01/24/20 1213 ASSISTED LIVING HOUSEKEEPER: MARIAELENA 01/24/20 1213 RPT#: [id number] DC DATE: STATUS: ADM IN [facility] [address] [place] [address] END OF REPORT
--- NOTE | 2020-01-24 15:18 | NUR ---
PT CONTINUALLY YELLING OUT FOR "SUSHMA", CONTINUES TO BE CONFUSED TO SITUATION AND IS INTERMITTENLY ABLE TO BE REORIENTED. DR DURHAM AWARE
--- NOTE | 2020-01-24 17:18 | NUR ---
1630 PT CHAIR ALARM GOING OFF, PT STATED SHE WAS GOING TO THE DR, INFORMED THAT THE DR WAS ALREADY GONE FOR THE DAY AND ASKED WHAT SHE NEEDED, PT STATED SHE JUST WANTED TO TALK TO THE DR, ASKED TO SIT DOWN AND PT BEGAN POKING THIS NURSES CHEST SAYING "I WILL DO WHAT I NEED TO" TOLD PT NOT TO TOUCH STAFF THAT IS NOT APPROPRIATE AND SHE APOLOGIZED AND SAT DOWN STATING SHE JUST WANTED THE TV OFF. TV TURNED OFF. PT THEN CALLED DAUGHTER WHO CALLED FOR UPDATE, SPOKE WITH PT AND THAT DR DURHAM IS AWARE. PT IS CURRENTLY CALM AND AGREEABLE UP IN CHAIR WITH DINNER TRAY
--- NOTE | 2020-01-24 18:52 | NUR ---
AFTER ASSISTING BACK TO BED BP 170S DR DURHAM NOTIFIED NEW ORDERS FOR LOPRESSOR
--- NOTE | 2020-01-24 19:00 | NUR ---
PT AOX3, DISORIENTED TO SITUATION. FOLLOWS ALL COMMANDS. TONGUE MIDLINE, HOMICIDE DETECTIVE EQUAL, PUPILS EQUAL AND REACTIVE. UNLABORED RESPIRATIONS, LUNG SOUNDS CLEAR. S1S2 HEARD, PERIPHERAL PULSES PRESENT. BOWEL SOUNDS ACTIVE IN ALL QUADRANTS. L NECK WITH DRSG CDI, NO OOZING PRESENT. UP TO BATHROOM WITH ASSISTANCE, LINEN CHANGE PROVIDED. REPOSITIONED BACK IN BED WITH PROMINENCES BRIDGED. CALL LIGHT AND BEDSIDE TABLE WITHIN PT REACH. CPOC.
--- NOTE | 2020-01-24 21:11 | NUR ---
FAMILY PROVIDED WITH UPDATE AT THIS TIME, ALL QUESTIONS ANSWERED.
--- NOTE | 2020-01-24 23:00 | NUR ---
REASSESSMENT COMPLETE, SEE FLOWSHEET FOR ALL FINDINGS. L NECK WITH DRSG CDI, MINIMAL SWELLING PRESENT, UNLABORED RESPIRATIONS. AOX3, DISORIENTED TO TIME, INTERMITTENTLY BECOMES DISORIENTED TO SITUATION BUT IS ABLE TO BE REORIENTED. COUGH/DB/IS WITH GOOD EFFORT- REACHING 1000 X10 ON I/S. PT REPOSITIONED WITH PROMINENCES BRIDGED. CPOC.
--- NOTE | 2020-01-24 23:50 | NUR ---
UP TO BATHROOM WITH ASSISTANCE, PARTIAL LINEN CHANGE PROVIDED. REPOSITIONED BACK IN BED WITH PROMINENCES BRIDGED. CALL LIGHT WITHIN PT REACH. CPOC.
[2020-01-25] VITALS (44 sets, daily range): BP systolic 114–170; BP diastolic 42–86
--- NOTE | 2020-01-25 01:00 | NUR ---
PT SLEEPING QUIELTY, REPOSITIONED SELF INDEPENDENTLY. NO S/S OF ACUTE DISTRESS NOTED. CPOC.
[2020-01-25 06:30] LABS: CALC OSMOLALITY 271 mosm/kg (275-300); CALCIUM 8.6 mg/dL (8.5-10.1); CARBON DIOXIDE 30.2 mmol/L (21.0-32.0); CHLORIDE - SERUM 102 mmol/L (98-107); CREATININE - SERUM 0.5 mg/dL (0.6-1.3); GLUCOSE 119 mg/dL (74-106); MAGNESIUM - SERUM 1.6 mg/dL (1.8-2.4); POTASSIUM - SERUM 3.5 mmol/L (3.5-5.1); SODIUM 136 mmol/L (136-145); UREA NITROGEN 9 mg/dL (7-18); eGFR NON AFRICAN AMERICAN > 90 mL/min (90-120)
[2020-01-25 06:46] LABS: BASOPHILS 0.2 % (0-2); EOSINOPHILS 2.1 % (0-7); HEMATOCRIT 34.2 % (36.0-48.0); HEMOGLOBIN 10.6 g/dL (12-16); LYMPHOCYTES 15.3 % (15-50); MCH 28.6 pg (26.0-34.0); MCV 92.2 fL (80.0-100.0); MEAN PLATELET VOLUME 8.8 fL (7.4-10.4); MONOCYTES 13.9 % (2-11); NEUTROPHILS 67.5 % (40-80); RBC 3.71 10x6/uL (4.00-5.40)
[2020-01-25 06:49] LABS: PLATELET COUNT 150 10x3/uL (130-400); WBC 5.8 10x3/uL (4.8-10.8)
--- NOTE | 2020-01-25 07:30 | NUR ---
UP IN CHAIR AT BEDSIDE. GAIT VERY UNSTEADY. WEANING NITRO GTT PO MEDS GIVEN FOR BLOOD PRESSURE. BREAKFAST SERVED
--- NOTE | 2020-01-25 09:49 | NUR ---
DR. DURHAM HERE. AMBULATING IN [facility] PER PHYSICAL THERAPY
--- NOTE | 2020-01-25 10:21 | NUR ---
Nutrition Follow-up: POD 2 L carotid endarterectomy. Nursing reports pt confused but ate well this AM. Diet: Diabetic, Mech Soft Wt: 189# (01/20) Labs noted: Glu 119, Mg 1.6 Meds noted: Protonix, Glucophage, Glucotrol, Humulin, electrolyte protocol -Encourage PO intake and honor food preferences within diet restrictions. -Monitor wt; noted daily wts ordered. -RD following.
--- NOTE | 2020-01-25 12:54 | NUR ---
ASSIST TO BED, FOR NAP. DRESSING LEFT LOWER NECK CHANGED. SITE CLEAN WIT BETADINE. NO DRAINAGE OR REDNESS NOTED AT SITE. STERILE 4X4 APPLIED SECURE WITH TEGRADERM.PATIENT TOLERATED FAIR.
--- NOTE | 2020-01-25 15:04 | NUR ---
DR. DURHAM HERE. STATES PATIENT CAN BE DISCHARGE
[2020-01-25] MEDS ORDERED: NORVASC5 MG PO (15:08)
[2020-01-25] MEDS ORDERED: LOPRESSOR25 MG PO (15:08)
--- NOTE | 2020-01-25 18:18 | MORECARE ---
CASE MANAGEMENT DISCHARGE SUMMARY PATIENT: PHILL OH UNIT: [id number] ADM DATE: 01/22/20 AGE: 84 : 35 SEX: F [facility]ED: [facility] AUTHOR: JOSÉ MIGUEL,DOC PHYSICIAN: REFERRING PHYSICIAN: FADI CORREA MD DATE OF SERVICE: 01/25/20 Discharge Plan Patient Name: PHILL OH Facility: [facility]:[place] : 1935 Planned Disposition: Home or Self Care Anticipated Discharge Date: Discharge Date: 01/25/2020 Expected LOS: Initial Reviewer: [email or web address] Initial Review Date: 01/20/2020 Generated: 01/25/20 7:18 pm Comments DCP- Discharge Planning Updated by [email or web address]: Juhi Lawrence on 01/24/20 11:[address] Patient Name: PHILL OH Admission Status: ER Accout number: [id number] Admission Date: 01-22-2020 : 1935 Admission Diagnosis:UNSPECIFIED SPEECH DISTURBANCES Attending: FADI CORREA Current LOS: 2 Anticipated DC Date: Planned Disposition: Home or Self Care Primary Insurance: MEDICARE A & B Discharge Planning Comments: CM met with patient at bedside after explaining CM role and obtaining verbal consent. Patient became very agitated at CM when CM started asking personal questions regarding living situation.CM got permission to call and speak to patient's daughter. Patient lives at home alone where she is independent with his care and plans to return there upon discharge. Patient's daughter Cecily lives next door. Patient feels this would be a safe discharge. CM discussed availability / needs of home health and medical equipment. Patient has had a bad experience with home health in the past and is refusing home health. Patient denies any discharge needs at this time. Patient states she will have his family drive him home upon discharge. CM will continue to follow and assist as needed with discharge planning / needs. Senior Ux Designer: Juhi Lawrence DCP- Discharge Planning Updated by [email or web address]: Juhi Lawrence on 01/23/20 3:[address] CM attempted to see patient and discuss discharge planning needs. Patient is currently drowsy post -op and unable to answer questions. CM will continue to follow and assist as needed with discharge planning / needs. DCPIA - Discharge Planning Initial Assessment Updated by [email or web address]: Juhi Lawrence on 01/24/20 12:01 pm * Is the patient Alert and Oriented? Yes * How many steps to enter\exit or inside your home? * PCP SHAE * Pharmacy [facility] * Preadmission Environment Home Alone * ADLs Independent * Other Equipment WALKER, W/C * List name and contact numbers for known caregivers / representatives who currently or will assist patient after discharge: CECILY WARREN - DAUGHTER- [phone], * Verbal permission to speak to the caregivers and representatives has been obtained from the patient. Yes * Community resources currently utilized None * Additional services required to return to the preadmission environment? No * Can the patient safely return to the preadmission environment? Yes * Has this patient been hospitalized within the prior 30 days at any hospital? No Coverage Notice Reviewer: [email or web address] - Juhi Lawrence Notice Issued Date-Time: 01/25/2020 15:00 Notice Type: IM Discharge Notice Notice Delivered To: Patient Relationship to Patient: Self Associate Software Engineer Name: Delivery Method: HAND - Hand Delivered Linda Days: Prior Verbal Notification: Recipient Understood Notice: Yes Recipient Signature: Yes Med Rec Note Co-signed by Attending: Coverage Notice Comment: Last DP export: 01/24/20 11:13 a Patient Name: PHILL OH Page [id number] at 1818 All edits/amendments must be made on the electronic document DICTATION DATE: 01/25/201817 VIDEO SYSTEM REPAIRER: MARIAELENA 01/25/201817 RPT#: [id number] DC DATE:01/25/20 STATUS: DIS IN [facility] [address] [place] [address] END OF REPORT
== END 2020-01-25 17:42 | disposition home or self-care (01) | DRG 39 ==
LOC: D.ER 15:22 → D.MS 17:35 → OBSVTIME 17:35 → D.MS 17:35 → D.CVICU 01-22 16:24 → D.MS 01-22 16:24 → D.CVICU 01-23 09:25
PROVIDERS: Family Medicine; Thoracic Surgery (Cardiothoracic Vascular Surgery); ADMIT Internal Medicine Nephrology; ATTEND Internal Medicine Nephrology
PROC: 03CJ0ZZ Extirpation of Matter from Left Common Carotid Artery, Open Approach (ICD-10-PCS; principal; 2020-01-23 07:30)
DX: I65.22 Occlusion and stenosis of left carotid artery (principal); I25.10 Atherosclerotic heart disease of native coronary artery without angina pectoris; E11.9 Type 2 diabetes mellitus without complications; I10 Essential (primary) hypertension; E78.5 Hyperlipidemia, unspecified; R40.2244 Coma scale, best verbal response, confused conversation, 24 hours or more after hospital admission; R40.2364 Coma scale, best motor response, obeys commands, 24 hours or more after hospital admission; R40.2134 Coma scale, eyes open, to sound, 24 hours or more after hospital admission; M19.90 Unspecified osteoarthritis, unspecified site; E83.42 Hypomagnesemia; Z86.73 Personal history of transient ischemic attack (TIA), and cerebral infarction without residual deficits